=== PATIENT | male | born 1975 | race African-American/Black ===

== ENCOUNTER 2020-09-04 13:43 | Inpatient (IN) | payer SELFPAY ==
[2020-09-04] MEDS ORDERED: Acetaminophen 500 MG TAB ONE (13:58)
[2020-09-04 14:58] LABS: Hemoglobin 7.3 g/dL (14.0-18.0); Mean Corpuscular HGB CONC 29.6 g/dL (32.0-36.0); Mean Corpuscular Hemoglobin 17.6 pg (27.0-31.0); Mean Corpuscular Volume 59.5 fL (78.0-98.0); Mean Platelet Volume 13.5 fL (7.4-10.4); Platelet Count 361 thou/uL (130-400); RBC Distribution Width 28.6 % (11.5-14.5); Red Blood Cell (RBC) Count 4.15 mill/uL (4.70-6.10)
--- NOTE | 2020-09-04 15:01 | RAD ---
XR Chest 1 View Portable History: Intermittent fever Comparison: Radiograph August 22, 2020 Findings: Peripheral left basilar opacity. Remainder of the lungs are clear. No pneumothorax. No effu laura. No pneumothorax. No acute osseous abnormality. Impression: Peripherally basilar opacity seen on recent abdomen pelvis CT examination likely reflecti ve of an area of scar as there is a adjacent diaphragmatic calcification.
[2020-09-04 15:18] LABS: ALT (SGPT) 12 U/L (8-55); AST (SGOT) 42 U/L (5-34); Albumin 2.5 g/dL (3.5-5.0); Alkaline Phosphatase 57 U/L (40-110); Anion Gap 15 mmol/L (10-20); BUN (Urea Nitrogen) 19 mg/dL (8.9-20.6); Bilirubin, Total 0.6 mg/dL (0.2-1.2); Calc. Creatinine Clearance 0 mL/min (70-130); Calcium 7.9 mg/dL (7.8-10.44); Carbon Dioxide 23 mmol/L (22-29); Chloride 96 mmol/L (98-107); Estimated GFR-MDRD 68; Globulin 6.4 g/dL (2.4-3.5); Glucose 106 mg/dL (70-105); Potassium 4.1 mmol/L (3.5-5.1); Protein, Total 8.9 g/dL (6.0-8.3); Sodium 130 mmol/L (136-145)
[2020-09-04 15:28] LABS: Anisocytosis MODERATE=16-30 cells (100X) (0-5/hpf); Band 3 % (5-11); Elliptocytes SLIGHT = 2-5 cells (100X) (0-1/hpf); Eosinophils 4 % (0-10); Hypochromia MODERATE=16-30 cells (100X) (0-5/hpf); Large Platelets SLIGHT; Lymphocytes 22 % (21-51); MDiff Complete? YES; Microcytosis MODERATE=15-30 cells (100X) (0-5/hpf); Monocytes 5 % (0-10); Neutrophil 65 % (42-75); Nucleated RBC 1 % (0); Ovalocytes SLIGHT = 2-5 cells (100X) (0-1/hpf); Platelet Morphology Comment Appears Adequate; Poikilocytosis SLIGHT = 6-15 cells (100X) (0-5/hpf); Polychromasia MODERATE = 3-4 cells (100X) (0-2/hpf); Reactive Lymphocytes 1 % (0-10); Schistocytes MODERATE= 6-15 cells (100X) (0-1/hpf); Target Cells SLIGHT = 2-5 cells (100X) (0-1/hpf); Tear Drops MODERATE= 6-15 cells (100X) (0-1/hpf)
[2020-09-04] MEDS ORDERED: Vancomycin 1 GM/200 ML BAG ONE (15:41)
[2020-09-04] MEDS ORDERED: Piperacillin/Tazobactam 3.375 GM VIAL ONE (15:41)
[2020-09-04] MEDS ORDERED: Fentanyl 100 MCG/2 ML VIAL ONE (16:14)
[2020-09-04 16:18] LABS: Bacteria/HPF None Seen HPF (None Seen); Bilirubin Negative (Negative); Blood, Urine Trace (Negative); Clarity Clear (Clear); Glucose, Urine (Dipstick) Normal (Negative); Ketone, Urine Negative (Negative); Leukocyte Negative Leu/uL (Negative); Nitrite Negative (Negative); Protein, Urine (Dipstick) 70 mg/dL (Neg-Trace); RBC/HPF 0-3 HPF (0-3); Specific Gravity, Urine 1.024 (1.002-1.036); Squamous Epithelial 0-3 HPF (0-3); pH, Urine 5.5 (5.0-9.0)
[2020-09-04 16:26] LABS: SARS-CoV-2 NAA Rapid Test Not Detected (NotDetected)
--- NOTE | 2020-09-04 16:37 | PDOC.HHP ---
Hospitalist HPI - History of Present Illness Fever History of Present Illness: PCP: None The patient is a 45-year-old male with a past medical history significant for HIV (diagnosed 2007) followed by Dr. Cross, frequent lower GI bleeds, history of hemorrhoids, and hypertension that presents to the emergency department for the above complaint. The patient was recently seen at our hospital on 08/22/2020 for a chief complaint of intermittent fevers and lower extremity swelling. The patient left AMA, stating that he felt like the hospital was ignoring his complaint of fever and was just concerned about his hemoglobin count. He reports that he went to [facility] on 08/26/2020 for the same chief complaint of fever and lower extremity swelling. He states that he was there for approximately 5 days. He states that he had "every lab possible". He reports at that stay that his hemoglobin got down to approximately 6.4. He was given 1 unit of RBCs and an iron infusion. He thinks he was seen by infectious disease. He reports that he left with "no diagnosis". He reports that he has had bright red blood per rectum since 2007 status post hemorrhoidectomy. He states that his bleeding last 1 to 2 days and primarily comes with bearing down with a bowel movement. It will resolve for approximately 1 month and then start again. He states that when he bears down he can feel the hemorrhoid "pop". Reports having normal EGD/colonoscopy at [facility] approximately 2 years ago. For the past 2 weeks he has been taking ibuprofen 600 mg twice daily. He denies any rectal pain or trauma. He denies any abdominal pain, nausea, vomiting, hematemesis or constipation. He has no family history of coagulopathy. He does not take any blood thinners. He has no history of liver disease. The patient reports that he has had fever for at least 2 weeks. He reports that its intermittent, T-max 100.3 Fahrenheit. He denies any headache, neck stiffness, recent travel. He denies any shortness of breath, cough or wheezing. No loss of smell. He tested negative for Covid approximately 1 week prior. He denies any chest pain, heart palpitations, or lightheadedness. He does report bilateral lower extremity swelling for the past 2 weeks. He denies any known trauma, pain, erythema, or numbness/tingling/weakness. No history of DVT/PE. He has been on amlodipine for several years and has never had this problem prior. He denies any dysuria or hematuria. Regarding the patient's diagnosis of HIV, he last saw Dr. Cross 1 week ago. He believes a CD 4 count was normal. He has not taken his Atripla since November. Dr. Cross prescribed Biktarvy, however, the patient has not filled the prescription at this time. ED Course: VITAL SIGNS WedSep 04, 2020 13:44 PREET Banuelos Dannette BP: 124/79, Pulse: 120, Resp: 20, Temp: 102.0 (Oral), Pain: 9, O2 sat: 99 on (Room Air), Time: 09/04/2020 13:44. VITAL SIGNS WedSep 04, 2020 14:08 PREET Anthony Oswaldo BP: 137/77, MAP: 97, Pulse: 119, Resp: 13, Temp: 102.9 (Oral), O2 sat: 95 on (Room Air), Time: 09/04/2020 14:08. VITAL SIGNS WedSep 04, 2020 15:10 PREET Anthony Oswaldo BP: 113/68, MAP: 83, Pulse: 113, Resp: 22, O2 sat: 96 on (Room Air), Time: 09/04/2020 15:10. VITAL SIGNS WedSep 04, 2020 15:49 PREET Smyth Jenifer BP: 112/64, MAP: 80, Pulse: 113, Resp: 20 (Non-Labored), Temp: 102.6 (Oral), O2 sat: 98 on (Room Air), Time: 09/04/2020 15:49. VITAL SIGNS WedSep 04, 2020 16:04 PREET Smyth Jenifer BP: 101/60, MAP: 73, Pulse: 105, Resp: 17 (Non-Labored), O2 sat: 98 on (Room Air), Time: 09/04/2020 16:04. VITAL SIGNS WedSep 04, 2020 16:25 PREET Anthony Oswaldo Temp: 101.5 (Oral), Time: 09/04/2020 16:25. Medication administration: fentaNYL (PF) injection 100 mcg IV Push Given 16:24 09/04/2020 sodium chloride 0.9 % intravenous 1 L IV Fluid Infusion Given 16:23 09/04/2020 vancomycin intravenous 1 g IV Piggy Back Given 16:04 09/04/2020 Zosyn 3.375 g IV Piggy Back Given 15:43 09/04/2020 sodium chloride 0.9 % intravenous 1 L IV Fluid Infusion Given 14:39 09/04/2020 Tylenol 1 g Oral Given 14:10 09/04/2020 Hospitalist ROS - Review of Systems Constitutional: reports: fever, chills, malaise Eyes: denies: vision change, redness ENT: reports: nose congestion Respiratory: denies: cough, shortness of breath, sputum, wheezing Cardiovascular: reports: edema (Bilateral lower extremity). denies: chest pain, palpitations, light headedness Gastrointestinal: reports: hematochezia. denies: nausea, vomiting, abdominal pain, diarrhea Genitourinary: denies: dysuria, hematuria Neurological: denies: weakness, numbness, incoordination, change in speech All other systems reviewed; all pertinent +/- noted in HPI/Subj - Medication Medications: Norvasc tablet : Strength - 10 mg : ORAL Patient Dose: 10 mg Oral once a day. Allergies: Iodine Hospitalist History - Past Medical History Source: patient, RN notes reviewed Cardiac: reports: HTN Gastrointestinal: reports: GI bleed (Lower GI bleed) Infectious Disease: reports: HIV (Followed by Dr. Cross, unknown CD4 count at this time) - Past Surgical History Past Surgical History: reports: Other (Hemorrhoidectomy (2007)) - Family History Family History: reports: Other (Noncontributory for autoimmune disorders). denies: cancer - Social History Smoking Status: Current every day smoker Tobacco Type: cigars Alcohol: reports: None Drugs: reports: Other (PCP once a month for the past year, smokes it and cigarettes) Living Situation: With Family (Lives with brother) Occupation: Disabled Activity level: independent ambulation - Exam General Appearance: NAD, awake alert, ill appearing General - other findings: Uncomfortable, diaphoretic Eye: PERRL, anicteric sclera ENT: normocephalic atraumatic, moist mucosa Neck: supple, symmetric Heart: RRR, no murmur, no gallops, no rubs, normal peripheral pulses Respiratory: CTAB, no wheezes, no rales, no ronchi, normal chest expansion, no tachypnea Gastrointestinal: soft, non-tender, normal bowel sounds, no bruit, no guarding, no rigidity, distended Gastrointestinal - other findings: Negative Rovsing sign, negative Thayer sign, no rebound tenderness Extremities: no cyanosis, 1+ LE edema (Bilaterally) Skin: negative: no rashes Skin - other findings: Healing sores bilateral upper extremities and bilateral lower extremities Neurological: cranial nerve grossly intact, no focal deficits Musculoskeletal: normal tone, normal strength Psychiatric: normal affect, A&O x 3 Hospitalist Results - Labs Result Diagrams: 09/04/20 14:43 09/04/20 14:43 Lab results: WBC 16.0 thou/uL (4.8-10.8) H 09/04/20 14:43 Hgb 7.3 g/dL (14.0-18.0) L 09/04/20 14:43 Hct 24.7 % (42.0-52.0) L 09/04/20 14:43 MCV 59.5 fL (78.0-98.0) L 09/04/20 14:43 Plt Count 361 thou/uL (130-400) 09/04/20 14:43 Band Neuts % (Manual) 3 % (5-11) L 09/04/20 14:43 Sodium 130 mmol/L (136-145) L 09/04/20 14:43 Potassium 4.1 mmol/L (3.5-5.1) 09/04/20 14:43 Chloride 96 mmol/L (98-107) L 09/04/20 14:43 Carbon Dioxide 23 mmol/L (22-29) 09/04/20 14:43 BUN 19 mg/dL (8.9-20.6) 09/04/20 14:43 Creatinine 1.38 mg/dL (0.7-1.3) H 09/04/20 14:43 Glucose 106 mg/dL (70-105) H 09/04/20 14:43 Lactic Acid 2.1 mmol/L (0.5-2.2) 09/04/20 14:43 Calcium 7.9 mg/dL (7.8-10.44) 09/04/20 14:43 Total Bilirubin 0.6 mg/dL (0.2-1.2) 09/04/20 14:43 AST 42 U/L (5-34) H 09/04/20 14:43 ALT 12 U/L (8-55) 09/04/20 14:43 Alkaline Phosphatase 57 U/L (40-110) 09/04/20 14:43 B-Natriuretic Peptide 50.1 pg/mL (0-100) 09/04/20 14:43 Serum Total Protein 8.9 g/dL (6.0-8.3) H 09/04/20 14:43 Albumin 2.5 g/dL (3.5-5.0) L 09/04/20 14:43 Urine Ketones Negative mg/dL (Negative) 09/04/20 15:50 Urine Blood Trace (Negative) A 09/04/20 15:50 Urine Nitrite Negative (Negative) 09/04/20 15:50 Ur Leukocyte Esterase Negative Audrey/uL (Negative) 09/04/20 15:50 Urine RBC 0-3 HPF (0-3) 09/04/20 15:50 Urine WBC 4-6 HPF (0-3) A 09/04/20 15:50 Ur Squamous Epith Cells 0-3 HPF (0-3) 09/04/20 15:50 Urine Bacteria None Seen HPF (None Seen) 09/04/20 15:50 - Radiology Interpretation Chest x-ray Status: report reviewed by me Additional Comment: Impression: Peripherally basilar opacity seen on recent abdomen pelvis CT examination likely reflective of an area of scar as there is a adjacent diaphragmatic calcification. Hospitalist H&P A/P - Problem (1) Fever Code(s): R50.9 - FEVER, UNSPECIFIED Status: Acute (2) Sepsis Code(s): A41.9 - SEPSIS, UNSPECIFIED ORGANISM Status: Acute (3) Microcytic anemia Code(s): D50.9 - IRON DEFICIENCY ANEMIA, UNSPECIFIED Status: Acute (4) Swelling of both lower extremities Code(s): M79.89 - OTHER SPECIFIED SOFT TISSUE DISORDERS Status: Acute (5) Illicit drug use Code(s): F19.90 - OTHER PSYCHOACTIVE SUBSTANCE USE, UNSPECIFIED, UNCOMPLICATED Status: Acute (6) HIV (human immunodeficiency virus infection) Code(s): B20 - HUMAN IMMUNODEFICIENCY VIRUS [HIV] DISEASE Status: Chronic (7) History of GI bleed Code(s): Z87.19 - PERSONAL HISTORY OF OTHER DISEASES OF THE DIGESTIVE SYSTEM Status: Chronic (8) HTN (hypertension) Code(s): I10 - ESSENTIAL (PRIMARY) HYPERTENSION Status: Chronic - Plan Plan: 45/M with PMH HIV and frequent lower GI bleed presents to emergency department for fever and lower extremity swelling. Admit to medical floor, inpatient status. Expected length of stay greater than 2 midnights. Presented febrile, tachycardic, tachypneic, NL BP and SPO2. CXR negative. Covid/influenza negative. UA 46 WBC, no leukocytes, nitrites, bacteria WBC 16.0, LA 2.1 Hemoglobin 7.3, hematocrit 24.7 BNP 50.1 #Fever of unknown source Continue broad-spectrum coverage, Zosyn and vancomycin. Continue maintenance IV fluid. Consult ID and hematology/oncology. Blood/urine CX pending Tylenol as needed #Sepsis Suspected. #Microcytic anemia History BRPR since 2007, history hemorrhoidectomy. Received 1 unit PRBCs and iron infusion on 08/26/2020 at [facility] Reported hemoglobin 6.4 at that stay. CBC with schistocytes.Consult hematology/oncology Check LDH, haptoglobin, reticulocyte ct., Peterson test, iron studies Trend H&H every 6. Orthostatic vital signs. Type and screen PPI Avoid NSAIDs and anticoagulants. #Swelling of both lower extremities Reports intermittent for past several weeks. Takes amlodipine, possible culprit. Order echocardiogram. #Illicit drug use Admits using PCP monthly for the past year. Inhales and cigarettes. Obtain UDS. Order echocardiogram. #HIV Followed by Dr. Cross, last appointment 1 week ago. Previously on a Atripla, has not taken since 11/2019. New prescription for Biktarvy has not been filled. Unknown CD4 count #History of GI bleed Reports monthly s/p hemorrhoidectomy (2007) Recent blood and iron transfusion on 08/26/2020 at [facility] for reported hemoglobin of 6.4. #HTN Presented normotensive. Takes amlodipine. We will hold home dose for now. SCDs for DVT prophylaxis. No GI prophylaxis. Full code. Discussed the case with Dr. Cuevas.
[2020-09-04] MEDS ORDERED: Ibuprofen 200 MG TAB ONE (17:05)
[2020-09-04] MEDS ORDERED: Ondansetron ODT 4 MG TAB PO PRN (17:45)
[2020-09-04] MEDS ORDERED: Communication Order-Pharmacy FS PRN (17:47)
[2020-09-04] MEDS: Sodium Chloride 0.9% 1,000 ML IV SCH (18:08)
[2020-09-04 18:11] LABS: CKMB 1.2 ng/mL (0-6.6)
[2020-09-04] MEDS ORDERED: Pantoprazole 40 MG VIAL IVP SCH (18:15)
[2020-09-04 18:18] LABS: Reticulocyte Count 1.6 % (0.5-1.5)
[2020-09-04 18:34] LABS: Lactic Acid 1.1 mmol/L (0.5-2.2)
[2020-09-04 18:51] LABS: Amphetamine Not Detected (NotDetected); Barbiturates Screen Not Detected (NotDetected); Benzodiazepine Screen Not Detected (NotDetected); Cocaine Metabolite Screen Not Detected (NotDetected); Medtox Reader # READER 1; Methadone Not Detected (NotDetected); Methamphetamine Not Detected (NotDetected); Opiate Screen Not Detected (NotDetected); Oxycodone Screen Not Detected (NotDetected); Phencyclidine (PCP) Detected (NotDetected); THC/Cannabinoid Screen Not Detected (NotDetected); Tricyclic Screen Not Detected (NotDetected)
[2020-09-04 18:52] LABS: Medtox Control Line Valid? VALID (VALID)
[2020-09-04 19:52] LABS: Iron 12 ug/dL (65-175); Iron Binding Capacity, Total 149 mcg/dL (261-462)
[2020-09-04] MEDS: Piperacillin/Tazobactam 3.375 GM in Sodium Chloride 0.9% 100 ML IVPB SCH (22:31)
[2020-09-04 22:37] VITALS: BMI 30.6
[2020-09-04] MEDS: Vancomycin 1.5 GRAM/300 ML BAG 1.5 GM in Premix Bag 1 BAG IVPB SCH (23:46)
[2020-09-04] MEDS: Acetaminophen 325 MG TAB PO PRN (23:54)
[2020-09-05 00:36] LABS: Hemoglobin 6.4 g/dL (14.0-18.0)
[2020-09-05] MEDS: Piperacillin/Tazobactam 3.375 GM in Sodium Chloride 0.9% 100 ML IVPB SCH ×4 (03:34→21:39)
[2020-09-05] MEDS ORDERED: HYDROcodone/Acetaminophen 5/325 mg Tablet PO SCH (05:30)
[2020-09-05] MEDS: Sodium Chloride 0.9% 1,000 ML IV SCH (05:44)
[2020-09-05] MEDS: Acetaminophen 325 MG TAB PO PRN ×3 (05:45→20:10)
[2020-09-05 07:40] LABS: #Eosinphils 0.7 thou/uL (0.0-0.7); #Lymphocytes 1.6 thou/uL (1.20-3.40); #Monocytes 0.8 thou/uL (0.11-0.59); #Neutrophils 7.1 thou/uL (1.40-6.50); %Basophils 0.5 % (0.0-1.0); %Eosinophils 7.1 % (0.0-10.0); %Lymphocytes 15.5 % (21.0-51.0); %Monocytes 7.5 % (0.0-10.0); %Neutrophils 69.4 % (42.0-75.0); Hemoglobin 6.4 g/dL (14.0-18.0); Mean Corpuscular HGB CONC 29.2 g/dL (32.0-36.0); Mean Corpuscular Hemoglobin 17.7 pg (27.0-31.0); Mean Corpuscular Volume 60.6 fL (78.0-98.0); Mean Platelet Volume 11.4 fL (7.4-10.4); Platelet Count 273 thou/uL (130-400); RBC Distribution Width 28.4 % (11.5-14.5); Red Blood Cell (RBC) Count 3.62 mill/uL (4.70-6.10); White Blood Cell (WBC) Count 10.2 thou/uL (4.8-10.8)
[2020-09-05 07:55] LABS: Anion Gap 10 mmol/L (10-20); BUN (Urea Nitrogen) 18 mg/dL (8.9-20.6); Calc. Creatinine Clearance 109 mL/min (70-130); Calcium 7.4 mg/dL (7.8-10.44); Carbon Dioxide 24 mmol/L (22-29); Chloride 102 mmol/L (98-107); Estimated GFR-MDRD 76; Glucose 102 mg/dL (70-105); Potassium 3.5 mmol/L (3.5-5.1); Sodium 132 mmol/L (136-145)
[2020-09-05 08:30] LABS: Band 4 % (5-11); Eosinophils 6 % (0-10); Hypochromia MODERATE=16-30 cells (100X) (0-5/hpf); Lymphocytes 15 % (21-51); MDiff Complete? YES; Microcytosis MARKED = >30 cells (100X) (0-5/hpf); Monocytes 6 % (0-10); Neutrophil 69 % (42-75); Ovalocytes MODERATE= 6-15 cells (100X) (0-1/hpf); Platelet Morphology Comment Appears Adequate; Polychromasia SLIGHT = 2-3 cells (100X) (0-2/hpf); Tear Drops MODERATE= 6-15 cells (100X) (0-1/hpf)
[2020-09-05] MEDS: Furosemide 40 MG/4 ML VIAL SLOW IVP SCH (08:53)
[2020-09-05] MEDS: Pantoprazole 40 MG VIAL IVP SCH (08:55)
[2020-09-05] MEDS ORDERED: Sulfameth/Trimethoprim DS 800-160mg TAB PO SCH (09:00)
[2020-09-05] MEDS: HYDROcodone/Acetaminophen 5/325 mg Tablet PO PRN ×2 (10:54→20:11)
[2020-09-05] MEDS: Gabapentin 300 MG CAP PO SCH ×3 (10:54→20:10)
[2020-09-05] MEDS: Vancomycin 1.5 GRAM/300 ML BAG 1.5 GM in Premix Bag 1 BAG IVPB SCH (13:25)
[2020-09-05] MEDS ORDERED: Polyethylene Glycol 3350 17 GM Packet PO PRN (14:43)
--- NOTE | 2020-09-05 14:45 | PDOC.HOSPP ---
- Subjective Subjective: Patient was seen examined at bedside. He had a T-max of 103 overnight. Patient reported as he had not been taking his HIV medication like he supposed to. Repeat a blood count this morning, his hemoglobin is was 6.4. His Covid PCR was negative patient complaining of lower extremity swelling. Blood cultures and urine culture were negative. He is currently is on empiric IV antibiotics with Zosyn and vancomycin. ID has been consulted. - Objective Vital Signs & Weight: Vital Signs (12 hours) Temp Pulse Pulse Resp BP BP BP 09/05/20 13:31 100.1 F H 09/05/20 12:03 101 F H 09/05/20 11:39 103 F H 113 H 20 136/76 09/05/20 11:34 103 F H 113 H 20 136/76 09/05/20 11:11 100.9 F H 108 H 20 139/80 09/05/20 08:00 99.8 F H 99 18 138/74 09/05/20 07:01 100.4 F H 09/05/20 06:15 103 F H 09/05/20 05:40 103.1 F H 117 H 16 131/75 Pulse Ox 09/05/20 13:31 09/05/20 12:03 09/05/20 11:39 98 09/05/20 11:34 98 09/05/20 11:11 97 09/05/20 08:00 98 09/05/20 07:01 09/05/20 06:15 09/05/20 05:40 98 Weight Weight 226 lb I&O: 09/04/20 09/05/20 09/06/20 06:59 06:59 06:59 Intake Total 240 0 Balance 240 0 Result Diagrams: 09/05/20 07:21 09/05/20 07:21 Radiology Reviewed by me: Yes EKG Reviewed by me: Yes Hospitalist ROS - Medication Medications: Active Medications Generic Name Dose Route Start Last Admin Trade Name Freq PRN Reason Stop Dose Admin Acetaminophen 650 mg 09/04/20 17:45 09/05/20 10:56 Acetaminophen 325 Mg Tab PO 650 mg Q4H PRN Administration Headache/Fever/Mild Pain (1-3) Hydrocodone Bitart/Acetaminophen 1 tab 09/05/20 09:45 09/05/20 10:54 Hydrocodone/Acetaminophen 5/325 Mg Tablet PO 1 tab Q4H PRN Administration Moderate to Severe Pain (6-10) Furosemide 40 mg 09/05/20 09:00 09/05/20 08:53 Furosemide 40 Mg/4 Ml Vial SLOW IVP 40 mg DAILY TAYLOR Administration Gabapentin 300 mg 09/05/20 09:00 09/05/20 10:54 Gabapentin 300 Mg Cap PO 300 mg TID TAYLOR Administration Piperacillin Sod/Tazobactam 100 mls @ 200 mls/hr 09/04/20 22:00 09/05/20 08:54 Sod 3.375 gm/ Sodium Chloride IVPB 100 mls 0400,1000,1600,2200 TAYLOR Administration Vancomycin HCl 1.5 gm/ Device 300 mls @ 200 mls/hr 09/04/20 23:59 09/05/20 13:25 IVPB 300 mls 1200,2359 TAYLOR Administration Pantoprazole Sodium 40 mg 09/05/20 09:00 09/05/20 08:55 Pantoprazole 40 Mg Vial IVP 40 mg DAILY TAYLOR Administration Trimethoprim/Sulfamethoxazole 1 tab 09/05/20 09:00 09/05/20 08:55 Sulfameth/Trimethoprim Ds 800-160mg Tab PO 1 tab BID TAYLOR Administration - Exam General Appearance: NAD Eye: PERRL ENT: normocephalic atraumatic Neck: supple Heart: RRR Respiratory: CTAB Gastrointestinal: soft, non-tender Extremities: 1+ LE edema Skin: normal turgor, no lesions Neurological: cranial nerve grossly intact Musculoskeletal: normal tone Psychiatric: normal affect, normal behavior, A&O x 3 Hosp A/P - Plan 45 years old -Wel[place] gentleman who has significant past medical histories of HIV, recurrent lower GI bleed, chronic anemia, medical noncompliance, who presented to ED with complaint of fever, and lower extremity swelling. Fevers of unknown origin --Continue with empiric IV antibiotic, vancomycin/Zosyn, add Bactrim as his CD4 count is unknown --Pending further ID recommendation --Follow all active cultures Microcytic anemia due to iron deficiency --No evidence of active bleeding. His iron study showed that he has iron deficiency anemia --We will start him on oral supplement, as well as IV Venofer --Transfuse 1 unit to keep hemoglobin above 7 Lower extremity swelling --2D echo is pending, will obtain bilateral lower extremity to rule out DVT --Start IV Lasix for dependent edema --Hold Novasc HIV --Check CD4 count --Patient is noncompliant with his antiviral medication --Dr. Cross has been consulted Medical noncompliance --Patient was counseled with regard to this issue Substance abuse --Urine drug screen positive for PCP. Counseled Essential hypertension --Blood pressure stable, his Novast currently is on hold due to his bilateral lower extremity swelling --We will monitor his blood pressure, consider different antihypertensive medications if needed Peripheral neuropathy --Likely due to to his HIV status --We will start him on gabapentin DVT ppx: SCD GI ppx: PPI Code Status: Full Anticipated Dispo: Home when medically stable
[2020-09-05] MEDS ORDERED: Iron, Sodium Ferric Gluconate 250 MG in Sodium Chloride 0.9% 100 ML IVPB SCH (15:00)
[2020-09-05] MEDS ORDERED: Acetaminophen 500 MG TAB PO SCH (15:15)
[2020-09-05 15:55] LABS: Hemoglobin 7.3 g/dL (14.0-18.0)
[2020-09-05] MEDS ORDERED: Vancomycin 1 GM in Premix Bag 1 BAG IVPB SCH (16:00)
--- NOTE | 2020-09-05 16:07 | ULT ---
EXAM: Bilateral lower extremity venous Doppler HISTORY: Bilateral lower extremity edema/swelling. Swelling and pain in each foot. FINDINGS: Grayscale, color-flow, Doppler evaluation, spectral analysis of the bilateral lower extremity venous structures is performed with 2-D imaging. The bilateral common femoral, superficial femoral, popliteal, posterior tibial, proximal greater saphenous and profunda femoral veins are imaged. There is normal luminal compressibility, flow, and augmentation in the visualized deep venous structu res of the bilateral lower extremities. There are several mildly enlarged lymph nodes seen in each inguinal region largest in right inguinal region measuring 1.2 cm in short axis dimension with largest in the left inguinal region measuring 1.3 cm in short axis dimension. Mildly enlarged lymph nodes are seen in bilaterally on CT exam on . IMPRESSION: 1. No evidence of a deep vein thrombosis in the visualized deep venous structures bilateral lower ext remities. 2. Bilateral inguinal lymphadenopathy.
[2020-09-05 17:56] LABS: Hemoglobin 7.5 g/dL (14.0-18.0)
[2020-09-05 18:33] LABS: Syphilis Antibody Nonreactive (Nonreactive); Syphilis Antibody Index 0.07 S/CO (<1.00 Non-Reactive)
--- NOTE | 2020-09-05 18:39 | CON ---
DATE OF CONSULTATION: 09/05/2020 REASON FOR CONSULTATION: Fever. HISTORY OF PRESENT ILLNESS: Mr. Henderson is actually one of my patients for many years now. He had been out of the clinic because of having being incarcerated for 2 or 3 years. He was taking anti-retroviral therapy while in long-term for his longstanding HIV infection. Many years ago, he had severe iron deficiency anemia, which was never completely clarified. It looks like he had banding of hemorrhoids elsewhere and then the severe iron deficiency anemia resolved and he actually was doing well for quite a while on antiretroviral therapy in the clinic. I was following him once or twice a year and then it disappeared because of this incarceration. He showed up in my office, I think, 2 or 3 weeks ago and so when he showed up in my office on August 26, he had been off anti-retroviral therapy since the end of 2018. He then developed nasal obstipation and rhinorrhea, some cough, low-grade fever, went to the emergency room and reportedly no COVID test was done. He continued with rhinorrhea and some malaise, low-grade temperature elevation and then he was noticed to be severely anemic. The same problem had been the dominant feature in his past history. He has noticed hematochezia intermittently. Anyway, I saw him and his viral load then was 15,000 off anti-retroviral therapy and his CD4 cell count was in the mid 300. We decided then to start Biktarvy, gave him a sample, which he has not taken because he was afraid of running out of it if he could not get it filled in the pharmacy. So he is waiting to fill it in the pharmacy before start taking the samples. Since that visit, he was admitted to [facility] for fever and general malaise. The initial diagnosis was sepsis. He had a full workup except for cryptococcus antigen, which was not done. His viral load was 2000 at [facility]. His blood cultures were negative. Liver panel was within normal limits with mild elevation of ALT. He had this microcytic anemia and his imaging study showed lymphadenopathy in the inguinal area. His chest x-ray did not show any infiltrates and his repeat COVID test was negative. So, he has 2 negative COVID tests, one from the beginning of August at [facility] and now the current one. So he was discharged from [facility] to follow up with me and then he started having fever again, now he is back in the hospital here at [facility] and he is having quite intense headaches which are persistent, has developed skin eruption, which in my opinion, reflects a prurigo nodularis, just a few areas of self excoriation scattered through the body skin, infectious process is not completely ruled out. I do not think they did a biopsy at [facility] though. He denies any visual symptoms, sore throat, odynophagia, or dysphagia. No cough or sputum production or chest pain, no dyspnea. No abdominal pain or diarrhea. No genitourinary symptoms. He has complained of swelling in the lower extremities and pain in the ankles and in metacarpophalangeal joints. MEDICAL HISTORY: Longstanding HIV infection, previously well controlled, then he went into long-term and he was taking anti-retroviral therapy, got out at the end of 2019 and stopped taking medication until he saw me. I gave him the samples of Biktarvy but he has not filled it. He has had severe iron deficiency anemia in the past which resolved and now it seems to be back. I think it is associated with gastrointestinal losses, possibly from either AV malformation or hemorrhoids or similar, was never really clarified in the past when he had endoscopies at [facility]. History of hypertension and hemorrhoidectomy. FAMILY HISTORY: Noncontributory. SOCIAL HISTORY: Everyday smoker, mostly cigars. Has used PCP in the past year. Living with brother. ALLERGY HISTORY: Iodine contrast media. CURRENT MEDICATIONS: 1. Colace. 2. Ferrous sulfate. He has had infusion of ferric sodium gluconate complex 250 mg x1. 3. Furosemide. 4. Zosyn. 5. Bactrim. PHYSICAL EXAMINATION: VITAL SIGNS: T-max 103, he is now 98, blood pressure 160/90, heart rate 111, respiratory rate 20, O2 saturation 97. SKIN: Shows multiple areas of self excoriation versus ulcerated lesions. I think those are secondary lesions, not primary. Bilateral inguinal lymphadenopathy about 1.8 cm. HEENT: Ocular movements conjugate. Sclerae white. Pupils are equal. Oral cavity normal without thrush. Teeth in good shape. NECK: Supple, no jugular vein distention. LUNGS: Symmetric, clear breath sounds. HEART: S1 and S2. Regular rate. No S3 or S4. ABDOMEN: Soft, not distended or tender. No ascites. No bladder distention. No organomegaly noted. EXTREMITIES: The patient has pain in mobilization and range of motion of ankles and small joints of feet, both right and left side. There is some limitation of movement because of that pain, but otherwise his neuro examination is nonfocal. He is awake, alert, oriented, follows commands. LABORATORY STUDIES: White cell count 16,000, is down to 10,000, hemoglobin 7.3, platelets 361 with 65% neutrophils, 3% bands, hypochromia noted, nucleated RBCs 1%, polychromasia, poikilocytosis. Chemistry with sodium 130, creatinine 1.38 with a baseline of 1.07. AST 42, ALT 12, alkaline phosphatase , bilirubin 0.6, albumin 2.5, globulin 6.4. Serum total protein 8.9. Urinalysis with 4 to 6 WBCs. The patient has detected PCP in the toxic screen. SARS-CoV RNA PCR not detected. Chest x-ray with no infiltrates. Venogram was pending at this time. ASSESSMENT: 1. Longstanding HIV infection with recent discontinuation of antiretroviral therapy after being released from prison. 2. CD4 cell count in the mid 300s when last checked in May. 3. 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 4. Severe iron deficiency anemia. The source is not clear, but it appears that is the colonic bleeding, chronic low volume. 5. Fever. 6. Leukocytosis. 7. Headaches. DISCUSSION: Differential diagnosis includes COVID infection which is less likely but not completely ruled out. We will go ahead and submit SARS-COV2 antibody to complete the workup. Usual community-acquired bacterial infection is less likely as well. Opportunistic infectious process more likely scenario or a malignancy such as lymphoma. Syphilis has to be ruled out. Mycobacterium tuberculosis is less likely. Atypical mycobacterial infections would be less likely in view of his last CD4 cell count. We will check CMV DNA PCR, crypto antigen. Histo antigen was negative at [facility]. So we will not repeat it. Check syphilis serology. Monitor blood cultures and a CSF evaluation will be ordered. Start anti-retroviral therapy with Isentress and Truvada. Recheck CD4 cell count. Job ID: [id number] [facility]
[2020-09-05] MEDS: Docusate 100 MG CAP PO SCH (20:10)
[2020-09-05] MEDS: Raltegravir Potassium 400 MG TAB PO SCH (20:10)
[2020-09-05 23:33] LABS: Hemoglobin 7.3 g/dL (14.0-18.0)
[2020-09-05 23:50] LABS: Vancomycin, Trough 7.5 ug/mL
[2020-09-06] MEDS: Acetaminophen 325 MG TAB PO PRN ×4 (00:28→20:18)
[2020-09-06] MEDS: Vancomycin 1.5 GRAM/300 ML BAG 1.5 GM in Premix Bag 1 BAG IVPB SCH ×4 (00:28→17:26)
[2020-09-06] MEDS: Piperacillin/Tazobactam 3.375 GM in Sodium Chloride 0.9% 100 ML IVPB SCH ×4 (04:05→22:46)
[2020-09-06 07:40] LABS: ALT (SGPT) 13 U/L (8-55); AST (SGOT) 33 U/L (5-34); Albumin 2.4 g/dL (3.5-5.0); Alkaline Phosphatase 58 U/L (40-110); Anion Gap 11 mmol/L (10-20); BUN (Urea Nitrogen) 10 mg/dL (8.9-20.6); Bilirubin, Total 1.2 mg/dL (0.2-1.2); CRP (Inflammatory) 19.56 mg/dL (= or < 0.5); Calc. Creatinine Clearance 102 mL/min (70-130); Calcium 7.9 mg/dL (7.8-10.44); Carbon Dioxide 23 mmol/L (22-29); Chloride 100 mmol/L (98-107); Estimated GFR-MDRD 71; Glucose 103 mg/dL (70-105); Magnesium 1.9 mg/dL (1.6-2.6); Potassium 3.8 mmol/L (3.5-5.1); Protein, Total 8.4 g/dL (6.0-8.3); Sodium 130 mmol/L (136-145)
[2020-09-06 07:58] LABS: #Basophils 0.1 thou/uL (0.0-0.2); #Eosinphils 0.6 thou/uL (0.0-0.7); #Lymphocytes 2.7 thou/uL (1.20-3.40); #Monocytes 1.2 thou/uL (0.11-0.59); #Neutrophils 10.2 thou/uL (1.40-6.50); %Basophils 0.4 % (0.0-1.0); %Lymphocytes 18.2 % (21.0-51.0); %Neutrophils 69.5 % (42.0-75.0); Hemoglobin 7.6 g/dL (14.0-18.0); Hypochromia SLIGHT = 6-15 cells (100X) (0-5/hpf); MDiff Complete? YES; Mean Corpuscular HGB CONC 30.3 g/dL (32.0-36.0); Mean Corpuscular Hemoglobin 18.4 pg (27.0-31.0); Mean Corpuscular Volume 60.8 fL (78.0-98.0); Mean Platelet Volume 9.5 fL (7.4-10.4); Microcytosis MARKED = >30 cells (100X) (0-5/hpf); Ovalocytes MODERATE= 6-15 cells (100X) (0-1/hpf); Platelet Count 306 thou/uL (130-400); Polychromasia MODERATE = 3-4 cells (100X) (0-2/hpf); RBC Distribution Width 28.9 % (11.5-14.5); Red Blood Cell (RBC) Count 4.14 mill/uL (4.70-6.10); Tear Drops SLIGHT = 2-5 cells (100X) (0-1/hpf); White Blood Cell (WBC) Count 14.7 thou/uL (4.8-10.8)
[2020-09-06] MEDS: HYDROcodone/Acetaminophen 5/325 mg Tablet PO PRN ×2 (09:07→20:18)
[2020-09-06] MEDS: Gabapentin 300 MG CAP PO SCH ×3 (09:08→20:17)
[2020-09-06] MEDS: Furosemide 40 MG/4 ML VIAL SLOW IVP SCH (09:08)
[2020-09-06] MEDS: Docusate 100 MG CAP PO SCH ×2 (09:09→20:17)
[2020-09-06] MEDS: Raltegravir Potassium 400 MG TAB PO SCH ×2 (09:09→20:18)
[2020-09-06] MEDS: Ferrous Gluconate 324 MG TAB PO SCH (09:09)
[2020-09-06] MEDS: Emtricitabine/Tenofovir 200-300 MG TAB PO SCH (09:09)
[2020-09-06] MEDS: Pantoprazole 40 MG VIAL IVP SCH (09:09)
--- NOTE | 2020-09-06 12:36 | RAD ---
FLUOROSCOPICALLY GUIDED LUMBAR PUNCTURE: DATE: 09/06/2020 HISTORY: 45-year-old HIV-positive male presents with headache and fever. Concern for meningitis. A volume of 15 mL of CSF was specifically requested by ordering physician. TECHNIQUE: Signed informed consent obtained. Patient placed prone on fluoroscopy table. Skin of lower back prepa red and draped in usual sterile fashion. 25-gauge needle used to apply buffered lidocaine superficially and deeply. Level selected:L2-3. Approach:right paramedian interlaminar. 22-gauge spinal needle advanced into spinal canal under brief, intermittent fluoroscopy. Upon return of CSF, patient was placed in left lateral decubitus position. A three-way stopcock was placed on the spinal needle after removal of stylette. Manometer was connected to the stopcock. Opening pressure was obtained. 15 mL of CSF collected and placed into 4 separate vials. Spinal needle was removed. Patient tolerated procedure well. No complications. Total fluoroscopy time:1.0 minutes. Dose area product:62.1 uGy*m^2. FINDINGS: CSF appearance: Clear and colorless. Opening pressure: 16 cm CSF. There are 5 lumbar-type vertebrae. Alignment is normal. Vertebral body heights and disc spaces are ma intained. There is no evidence of fracture, significant osteophytes, or any other focal osseous abnormality. IMPRESSION: 1.) Successful lumbar puncture 2.):15 mL of clear cerebrospinal fluid sent to laboratory for analysis. 3.) Normal opening pressure of 16 cm CSF.
[2020-09-06] MEDS ORDERED: Acetaminophen 500 MG TAB PO SCH (13:15)
[2020-09-06 14:08] LABS: CSF, Glucose 49 mg/dl (40-70); CSF, Protein 118 mg/dL (15-40)
--- NOTE | 2020-09-06 14:08 | PDOC.HOSPP ---
- Subjective Subjective: Patient was seen examined at bedside. He is returned from lumbar puncture. He tolerated procedure well. He is still having intermittent fever. Patient denies headache. - Objective Vital Signs & Weight: Vital Signs (12 hours) Temp Pulse Resp BP Pulse Ox 09/06/20 13:19 102 F H 09/06/20 13:17 102 F H 09/06/20 08:21 101.8 F H 113 H 18 154/89 H 96 09/06/20 04:04 102.5 F H 09/06/20 04:00 102.5 F H 107 H 16 155/97 H 94 L Weight Weight 226 lb I&O: 09/05/20 09/06/20 09/07/20 06:59 06:59 06:59 Intake Total 240 3110 Balance 240 3110 Result Diagrams: 09/06/20 07:04 09/06/20 07:04 Radiology Reviewed by me: Yes EKG Reviewed by me: Yes Hospitalist ROS - Medication Medications: Active Medications Generic Name Dose Route Start Last Admin Trade Name Freq PRN Reason Stop Dose Admin Acetaminophen 650 mg 09/04/20 17:45 09/06/20 09:06 Acetaminophen 325 Mg Tab PO 650 mg Q4H PRN Administration Headache/Fever/Mild Pain (1-3) Acetaminophen 1,000 mg 09/06/20 13:15 09/06/20 13:17 Acetaminophen 500 Mg Tab PO 09/06/20 15:15 1,000 mg NOW TAYLOR Administration Hydrocodone Bitart/Acetaminophen 1 tab 09/05/20 09:45 09/06/20 09:07 Hydrocodone/Acetaminophen 5/325 Mg Tablet PO 1 tab Q4H PRN Administration Moderate to Severe Pain (6-10) Docusate Sodium 100 mg 09/05/20 21:00 09/06/20 09:09 Docusate 100 Mg Cap PO 100 mg BID TAYLOR Administration Emtricitabine/Tenofovir 1 tab 09/06/20 09:00 09/06/20 09:09 Emtricitabine/Tenofovir 200-300 Mg Tab PO 1 tab DAILY TAYLOR Administration Ferrous Gluconate 324 mg 09/06/20 08:00 09/06/20 09:09 Ferrous Gluconate 324 Mg Tab PO 324 mg QAM-WM TAYLOR Administration Gabapentin 300 mg 09/05/20 09:00 09/06/20 09:08 Gabapentin 300 Mg Cap PO 300 mg TID TAYLOR Administration Piperacillin Sod/Tazobactam 100 mls @ 200 mls/hr 09/04/20 22:00 09/06/20 09:10 Sod 3.375 gm/ Sodium Chloride IVPB 100 mls 0400,1000,1600,2200 TAYLOR Administration Vancomycin HCl 1.5 gm/ Device 300 mls @ 200 mls/hr 09/06/20 01:00 09/06/20 09:09 IVPB 300 mls 0100,0900,1700 TAYLOR Administration Pantoprazole Sodium 40 mg 09/05/20 09:00 09/06/20 09:09 Pantoprazole 40 Mg Vial IVP 40 mg DAILY TAYLOR Administration Raltegravir 400 mg 09/05/20 21:00 09/06/20 09:09 Raltegravir Potassium 400 Mg Tab PO 400 mg BID TAYLOR Administration - Exam General Appearance: NAD Eye: PERRL ENT: normocephalic atraumatic Neck: supple Heart: RRR Respiratory: CTAB, no wheezes Gastrointestinal: soft, non-tender Extremities: no cyanosis Skin: normal turgor Neurological: cranial nerve grossly intact Musculoskeletal: normal tone Psychiatric: normal affect, normal behavior Hosp A/P - Plan 45 years old -[place] Citizen gentleman who has significant past medical history of HIV, recurrent lower GI bleed, chronic anemia, medical noncompliance, who presented to ED with complaint of fever, and lower extremity swelling. Fevers of unknown origin --Continue with empiric IV antibiotic, vancomycin/Zosyn/Bactrim --Appreciate ID input. s/p LP --Follow all active cultures Microcytic anemia due to iron deficiency, and hx of GI bleed --No evidence of active bleeding. His iron study showed that he has iron deficiency anemia --s/p 1U PRBC, venofer x 1; cont supplemental iron --follow CBC, transfuse to keep Hb>7 HIV --CD4 count pending. Around mid 300 in May per ID --Patient is noncompliant with his antiviral medications --Dr. Cross started him on Isentress and Truvada Medical noncompliance --Patient was counseled with regard to this issue Substance abuse --Urine drug screen positive for PCP. Counseled Essential hypertension --Katelynn currently is on hold due to his bilateral lower extremity ankle swelling --start Lopressor for BP/rate control Peripheral neuropathy --Likely due to to his HIV status --Started him on gabapentin Lower extremity swelling --Echo OK. Venous doppler negative for DVT --Swelling resolved with IV Lasix. DVT ppx: SCD GI ppx: PPI Code Status: Full Anticipated Dispo: Home when medically stable
[2020-09-06] MEDS ORDERED: Metoprolol Tartrate 25 MG TAB PO SCH (14:30)
[2020-09-06 14:32] LABS: CSF Source CSF; Tube # 4
[2020-09-06 14:33] LABS: Clarity Clear (Clear)
[2020-09-06 14:36] LABS: Cell Count Non Hematic 7 %; Eosinophils 3 %; Lymphocytes 75 %
[2020-09-06 14:37] LABS: Segmented Neutrophils 8 %
[2020-09-06] MEDS: Metoprolol Tartrate 25 MG TAB PO SCH (20:18)
[2020-09-07] MEDS: Vancomycin 1.5 GRAM/300 ML BAG 1.5 GM in Premix Bag 1 BAG IVPB SCH ×2 (00:30→10:32)
[2020-09-07] MEDS: Acetaminophen 325 MG TAB PO PRN ×5 (00:30→19:02)
[2020-09-07] MEDS: HYDROcodone/Acetaminophen 5/325 mg Tablet PO PRN ×3 (00:31→23:46)
[2020-09-07 00:48] LABS: Vancomycin, Trough Less than 1.1 ug/mL
[2020-09-07] MEDS: Piperacillin/Tazobactam 3.375 GM in Sodium Chloride 0.9% 100 ML IVPB SCH ×4 (04:24→21:38)
[2020-09-07 05:01] LABS: #Basophils 0.1 thou/uL (0.0-0.2); #Eosinphils 0.6 thou/uL (0.0-0.7); #Lymphocytes 2.5 thou/uL (1.20-3.40); #Monocytes 1.3 thou/uL (0.11-0.59); #Neutrophils 8.3 thou/uL (1.40-6.50); %Basophils 0.4 % (0.0-1.0); %Eosinophils 4.8 % (0.0-10.0); %Lymphocytes 19.6 % (21.0-51.0); %Monocytes 10.3 % (0.0-10.0); %Neutrophils 64.9 % (42.0-75.0); Hemoglobin 7.5 g/dL (14.0-18.0); Mean Corpuscular HGB CONC 29.6 g/dL (32.0-36.0); Mean Corpuscular Hemoglobin 18.3 pg (27.0-31.0); Mean Corpuscular Volume 61.8 fL (78.0-98.0); Mean Platelet Volume 11.9 fL (7.4-10.4); Platelet Count 298 thou/uL (130-400); RBC Distribution Width 29.5 % (11.5-14.5); Red Blood Cell (RBC) Count 4.08 mill/uL (4.70-6.10); White Blood Cell (WBC) Count 12.8 thou/uL (4.8-10.8)
[2020-09-07 05:08] LABS: ALT (SGPT) 14 U/L (8-55); AST (SGOT) 30 U/L (5-34); Albumin 2.3 g/dL (3.5-5.0); Alkaline Phosphatase 54 U/L (40-110); Anion Gap 13 mmol/L (10-20); BUN (Urea Nitrogen) 16 mg/dL (8.9-20.6); Bilirubin, Total 1.2 mg/dL (0.2-1.2); Calc. Creatinine Clearance 108 mL/min (70-130); Carbon Dioxide 18 mmol/L (22-29); Chloride 102 mmol/L (98-107); Estimated GFR-MDRD 76; Glucose 101 mg/dL (70-105); Protein, Total 8.3 g/dL (6.0-8.3); Sodium 129 mmol/L (136-145)
[2020-09-07 08:39] LABS: Vancomycin, Trough Less than 1.1 ug/mL
--- NOTE | 2020-09-07 10:22 | MRI ---
Exam: Brain MRI with and without contrast HISTORY: Abnormal CSF. Headache. HIV positive patient. COMPARISON: None FINDINGS: Gradient echo sequence: No hemorrhage Calvarium: Appropriate T1 marrow signal intensity Midline brain parenchyma: Unremarkable Cerebrum:No parenchymal mass, mass effect or midline shift. Brain volume, slightly less than expected for patient's age. Cortical barrow-white matter differentiation is preserved. No significant T2 or FLAIR white matter hyperintensities. Ventricles: No evidence of hydrocephalus. Sinuses and mastoid air cells: Mild mucosal thickening of the paranasal sinuses. Minimal opacificatio n of bilateral mastoid air cells. Diffusion: Central arterial flow is maintained. Absent restricted diffusion. Postcontrast images:There is a small focus of enhancement along the inferior right lentiform nucleus measuring 0.3 cm. There is no associated restricted diffusion. On the gradient echo sequence, there is hypointensity. The possibility of a small vascular malformation, such as a cavernoma, is raised. N o significant meningeal enhancement. IMPRESSION: 1. Absent restricted diffusion. No acute infarct 2. 3 mm enhancing focus in the right lentiform nucleus. There is associated hypointensity in the axia l gradient echo sequence. Small vascular malformation such as cavernoma is raised. As a conservative measure, 3 month follow-up MRI is recommended.
[2020-09-07] MEDS: Gabapentin 300 MG CAP PO SCH ×3 (10:42→19:02)
[2020-09-07] MEDS: Metoprolol Tartrate 25 MG TAB PO SCH ×2 (10:42→19:03)
[2020-09-07] MEDS: Emtricitabine/Tenofovir 200-300 MG TAB PO SCH (10:43)
[2020-09-07] MEDS: Pantoprazole 40 MG VIAL IVP SCH (10:43)
[2020-09-07] MEDS: Ferrous Gluconate 324 MG TAB PO SCH (10:43)
[2020-09-07] MEDS: Raltegravir Potassium 400 MG TAB PO SCH ×2 (10:43→19:03)
[2020-09-07] MEDS: Docusate 100 MG CAP PO SCH ×2 (10:43→19:03)
--- NOTE | 2020-09-07 11:55 | PDOC.HOSPP ---
- Subjective Encounter Date: 09/07/20 Encounter Time: 11:10 Subjective: Patient is resting. He recovered completely. He is responding to questions appropriately. He did had a temp until this morning he had 1 more febrile episode with a temp of 101.3. He is concerned about his fluid intake. His sodium is on the low end. - Objective Vital Signs & Weight: Vital Signs (12 hours) Temp Pulse Resp BP Pulse Ox 09/07/20 11:26 101.3 F H 09/07/20 07:59 98.3 F 96 18 133/74 97 09/07/20 04:00 98.2 F 09/07/20 00:00 100.6 F H Weight Weight 226 lb I&O: 09/06/20 09/07/20 09/08/20 06:59 06:59 06:59 Intake Total 3110 2560 Balance 3110 2560 Result Diagrams: 09/07/20 04:36 09/07/20 04:36 Hospitalist ROS - Medication Medications: Active Medications Generic Name Dose Route Start Last Admin Trade Name Freq PRN Reason Stop Dose Admin Acetaminophen 650 mg 09/04/20 17:45 09/07/20 10:42 Acetaminophen 325 Mg Tab PO 650 mg Q4H PRN Administration Headache/Fever/Mild Pain (1-3) Hydrocodone Bitart/Acetaminophen 1 tab 09/05/20 09:45 09/07/20 00:31 Hydrocodone/Acetaminophen 5/325 Mg Tablet PO 1 tab Q4H PRN Administration Moderate to Severe Pain (6-10) Docusate Sodium 100 mg 09/05/20 21:00 09/07/20 10:43 Docusate 100 Mg Cap PO 100 mg BID TAYLOR Administration Emtricitabine/Tenofovir 1 tab 09/06/20 09:00 09/07/20 10:43 Emtricitabine/Tenofovir 200-300 Mg Tab PO 1 tab DAILY TAYLOR Administration Ferrous Gluconate 324 mg 09/06/20 08:00 09/07/20 10:43 Ferrous Gluconate 324 Mg Tab PO 324 mg QAM-WM TAYLOR Administration Gabapentin 300 mg 09/05/20 09:00 09/07/20 10:42 Gabapentin 300 Mg Cap PO 300 mg TID TAYLOR Administration Piperacillin Sod/Tazobactam 100 mls @ 200 mls/hr 09/04/20 22:00 09/07/20 10:43 Sod 3.375 gm/ Sodium Chloride IVPB 100 mls 0400,1000,1600,2200 TAYLOR Administration Metoprolol Tartrate 25 mg 09/06/20 21:00 09/07/20 10:42 Metoprolol Tartrate 25 Mg Tab PO 25 mg BID TAYLOR Administration Pantoprazole Sodium 40 mg 09/05/20 09:00 09/07/20 10:43 Pantoprazole 40 Mg Vial IVP 40 mg DAILY TAYLOR Administration Raltegravir 400 mg 09/05/20 21:00 09/07/20 10:43 Raltegravir Potassium 400 Mg Tab PO 400 mg BID TAYLOR Administration - Exam General Appearance: NAD, awake alert, ill appearing Eye: PERRL ENT: normocephalic atraumatic Neck: supple Heart: RRR, normal peripheral pulses Respiratory: CTAB, normal chest expansion Gastrointestinal: soft, normal bowel sounds Neurological: no focal deficits Psychiatric: A&O x 3 Hosp A/P - Plan Fevers of unknown origin --Continue with empiric IV antibiotic, vancomycin/Zosyn/Bactrim --Appreciate ID input. s/p LP ----His CSF pressure is normal. About 15 mL of CSF fluid removed. Shows high protein level of 118. --CSF glucose is normal range. Lymphocytes about 75% -Cryptococcal antigen negative. In the CSF fluid. Microcytic anemia due to iron deficiency, and hx of GI bleed --No evidence of active bleeding. His iron study showed that he has iron deficiency anemia --s/p 1U PRBC, venofer x 1; cont supplemental iron --follow CBC, transfuse to keep Hb<7 HIV --CD4 count pending. Around mid 300 in May per ID --Patient is noncompliant with his antiviral medications --Dr. Cross started him on Isentress and Truvada Medical noncompliance --Patient was counseled with regard to this issue Substance abuse --Urine drug screen positive for PCP. 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 Venous doppler negative for DVT --Swelling resolved with IV Lasix. DVT ppx: SCD GI ppx: PPI Code Status: Full Anticipated Dispo: Home when medically stable Patient has ongoing fever. White count is trending down. Blood and urine cultures negative so far. Currently on Zosyn. Will follow his hemoglobin which is at 7.5 today. See how he does in the next 24 to 48hours make sure he has no fever and his white count is normalized.. CD4 count is still pending.
[2020-09-07] MEDS: Vancomycin HCl 1.75 GM in Sodium Chloride 0.9% 500 ML IVPB SCH ×2 (12:34→23:47)
[2020-09-07] MEDS ORDERED: Magnevist 469MG/ML 20 ML VIAL ONE (15:53)
[2020-09-07 16:09] LABS: %CD4 (Helper/Inducer) 17.8 % (30.8-58.5); Absolute CD4 392 /uL (359-1519); Lymphocytes/Gated Cell Count 2.2 x10E3/uL (0.7-3.1); Total Lymphocyte 16 % (Not Estab.); WBC Total Count 13.3 x10E3/uL (3.4-10.8); nRBC 1 % (0 - 0)
[2020-09-08] MEDS: Piperacillin/Tazobactam 3.375 GM in Sodium Chloride 0.9% 100 ML IVPB SCH ×2 (04:02→09:41)
[2020-09-08] MEDS: Acetaminophen 325 MG TAB PO PRN ×2 (04:03→12:37)
[2020-09-08] MEDS: Gabapentin 300 MG CAP PO SCH ×3 (09:40→19:59)
[2020-09-08] MEDS: Emtricitabine/Tenofovir 200-300 MG TAB PO SCH (09:40)
[2020-09-08] MEDS: HYDROcodone/Acetaminophen 5/325 mg Tablet PO PRN ×2 (09:40→19:59)
[2020-09-08] MEDS: Ferrous Gluconate 324 MG TAB PO SCH (09:40)
[2020-09-08] MEDS: Docusate 100 MG CAP PO SCH ×2 (09:40→20:00)
[2020-09-08] MEDS: Raltegravir Potassium 400 MG TAB PO SCH ×2 (09:40→20:00)
[2020-09-08] MEDS: Pantoprazole 40 MG VIAL IVP SCH (09:41)
[2020-09-08] MEDS: Metoprolol Tartrate 25 MG TAB PO SCH ×2 (09:41→19:59)
[2020-09-08] MEDS: Vancomycin HCl 1.75 GM in Sodium Chloride 0.9% 500 ML IVPB SCH (10:28)
--- NOTE | 2020-09-08 12:33 | PDOC.HOSPP ---
- Subjective Encounter Date: 09/08/20 Encounter Time: 12:10 Subjective: he has ongoing fever, ankle swollen, but no pitting edema on the legs. - Objective Vital Signs & Weight: Vital Signs (12 hours) Temp Pulse Resp BP Pulse Ox 09/08/20 12:00 101.0 F H 09/08/20 08:00 102.8 F H 113 H 20 132/79 98 09/08/20 04:03 101 F H Weight Weight 226 lb I&O: 09/07/20 09/08/20 09/09/20 06:59 06:59 06:59 Intake Total 2560 3310 960 Balance 2560 3310 960 Result Diagrams: 09/07/20 04:36 09/07/20 04:36 Hospitalist ROS - Medication Medications: Active Medications Generic Name Dose Route Start Last Admin Trade Name Freq PRN Reason Stop Dose Admin Acetaminophen 650 mg 09/04/20 17:45 09/08/20 04:03 Acetaminophen 325 Mg Tab PO 650 mg Q4H PRN Administration Headache/Fever/Mild Pain (1-3) Hydrocodone Bitart/Acetaminophen 1 tab 09/05/20 09:45 09/08/20 09:40 Hydrocodone/Acetaminophen 5/325 Mg Tablet PO 1 tab Q4H PRN Administration Moderate to Severe Pain (6-10) Docusate Sodium 100 mg 09/05/20 21:00 09/08/20 09:40 Docusate 100 Mg Cap PO 100 mg BID TAYLOR Administration Emtricitabine/Tenofovir 1 tab 09/06/20 09:00 09/08/20 09:40 Emtricitabine/Tenofovir 200-300 Mg Tab PO 1 tab DAILY TAYLOR Administration Ferrous Gluconate 324 mg 09/06/20 08:00 09/08/20 09:40 Ferrous Gluconate 324 Mg Tab PO 324 mg QAM-WM TAYLOR Administration Gabapentin 300 mg 09/05/20 09:00 09/08/20 09:40 Gabapentin 300 Mg Cap PO 300 mg TID TAYLOR Administration Piperacillin Sod/Tazobactam 100 mls @ 200 mls/hr 09/04/20 22:00 09/08/20 09:41 Sod 3.375 gm/ Sodium Chloride IVPB 100 mls 0400,1000,1600,2200 TAYLOR Administration Vancomycin HCl 1.75 gm/ Sodium 500 mls @ 250 mls/hr 09/07/20 12:00 09/08/20 10:28 Chloride IVPB 500 mls 1200,2359 TAYLOR Administration Metoprolol Tartrate 25 mg 09/06/20 21:00 09/08/20 09:41 Metoprolol Tartrate 25 Mg Tab PO 25 mg BID TAYLOR Administration Pantoprazole Sodium 40 mg 09/05/20 09:00 09/08/20 09:41 Pantoprazole 40 Mg Vial IVP 40 mg DAILY TAYLOR Administration Raltegravir 400 mg 09/05/20 21:00 09/08/20 09:40 Raltegravir Potassium 400 Mg Tab PO 400 mg BID TAYLOR Administration - Exam General Appearance: NAD, awake alert Eye: PERRL ENT: normocephalic atraumatic Neck: supple Heart: RRR Respiratory: CTAB, normal chest expansion Gastrointestinal: soft, normal bowel sounds Extremities: 1+ LE edema Extremities - other findings: ankle swollen, b/l Neurological: cranial nerve grossly intact, no focal deficits Psychiatric: A&O x 3 Hosp A/P - Plan Fevers of unknown origin --Continue with empiric IV antibiotic, vancomycin/Zosyn/Bactrim --Appreciate ID input. s/p LP ----His CSF pressure is normal. About 15 mL of CSF fluid removed. Shows high protein level of 118. --CSF glucose is normal range. Lymphocytes about 75% -Cryptococcal antigen negative. In the CSF fluid. Microcytic anemia due to iron deficiency, and hx of GI bleed --No evidence of active bleeding. His iron study showed that he has iron de ficiency anemia --s/p 1U PRBC, venofer x 1; cont supplemental iron --follow CBC, transfuse to keep Hb<7 HIV --CD4 count pending. Around mid 300 in May per ID --Patient is noncompliant with his antiviral medications --Dr. Cross started him on Isentress and Truvada Medical noncompliance --Patient was counseled with regard to this issue Substance abuse --Urine drug screen positive for PCP. 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 Venous doppler negative for DVT --Swelling resolved with IV Lasix. DVT ppx: SCD GI ppx: PPI Code Status: Full Anticipated Dispo: Home when medically stable Patient has ongoing fever, requiring ongoing Tylenol [id number] every 4 hours. White count is trending down. Blood and urine cultures negative so far. Currently on Zosyn. CD4 count is 392 He was incarcerated recently and released and seems living locally. so unlikely valley fever, histo etc causing his fever. His CD count good, not AIDS - so AIDS and other etiologies associated with the AIDS including, Kaposi's sarcoma causing fever is unlikely in his case. Will repeat the chest x-ray,UA and inflammatory markers.
[2020-09-08 13:11] LABS: #Basophils 0.1 thou/uL (0.0-0.2); #Eosinphils 0.4 thou/uL (0.0-0.7); #Lymphocytes 3.2 thou/uL (1.20-3.40); #Neutrophils 7.5 thou/uL (1.40-6.50); %Basophils 0.6 % (0.0-1.0); %Eosinophils 3.5 % (0.0-10.0); %Lymphocytes 26.1 % (21.0-51.0); %Monocytes 8.1 % (0.0-10.0); %Neutrophils 61.7 % (42.0-75.0); Hemoglobin 7.1 g/dL (14.0-18.0); Mean Corpuscular HGB CONC 29.6 g/dL (32.0-36.0); Mean Corpuscular Hemoglobin 17.8 pg (27.0-31.0); Mean Corpuscular Volume 60.2 fL (78.0-98.0); Mean Platelet Volume 12.1 fL (7.4-10.4); Platelet Count 324 thou/uL (130-400); White Blood Cell (WBC) Count 12.2 thou/uL (4.8-10.8)
[2020-09-08 13:14] LABS: Anion Gap 12 mmol/L (10-20); BUN (Urea Nitrogen) 13 mg/dL (8.9-20.6); Calc. Creatinine Clearance 110 mL/min (70-130); Calcium 7.7 mg/dL (7.8-10.44); Carbon Dioxide 19 mmol/L (22-29); Chloride 104 mmol/L (98-107); Estimated GFR-MDRD 77; Glucose 95 mg/dL (70-105); Potassium 4.1 mmol/L (3.5-5.1); Sodium 131 mmol/L (136-145)
--- NOTE | 2020-09-08 13:40 | RAD ---
Exam: Chest one view HISTORY:Persistent, ongoing fever Comparison: 09/04/2020 FINDINGS: Cardiac silhouette: Normal Aorta: Unremarkable Pulmonary vessels: Normal Costophrenic angles: Clear LUNGS: No masses or consolidation. Pneumothorax: None Osseous abnormalities: None IMPRESSION: No acute cardiopulmonary process.
[2020-09-08 13:57] LABS: Anisocytosis MODERATE=16-30 cells (100X) (0-5/hpf); Elliptocytes SLIGHT = 2-5 cells (100X) (0-1/hpf); Hypochromia MODERATE=16-30 cells (100X) (0-5/hpf); MDiff Complete? YES; Microcytosis MODERATE=15-30 cells (100X) (0-5/hpf); Ovalocytes MODERATE= 6-15 cells (100X) (0-1/hpf); Poikilocytosis MODERATE=16-30 cells (100X) (0-5/hpf); Polychromasia MODERATE = 3-4 cells (100X) (0-2/hpf); Schistocytes SLIGHT = 2-5 cells (100X) (0-1/hpf); Spherocytes SLIGHT = 1-5 cells (100X) (None Seen); Target Cells SLIGHT = 2-5 cells (100X) (0-1/hpf); Tear Drops SLIGHT = 2-5 cells (100X) (0-1/hpf)
[2020-09-08] MEDS ORDERED: Ibuprofen 800 MG TAB PO SCH (14:30)
--- NOTE | 2020-09-08 14:45 | PRG ---
DATE OF SERVICE: 09/08/2020 SUBJECTIVE: Still having fever, pretty much constantly. He describes what he perceives as a scotomas in the left side. No sore throat, odynophagia, dysphagia. No cough, sputum production, or chest pain. No abdominal pain. Voiding without difficulty. Some loose stool intermittently. Quite a bit of pain in the feet, mostly on the right side but also some on the left. The pain is localized to the forefoot, right and left side. It is not clear if the pain is neuropathic in nature or if it is in the substance of the foot. He does have pain on palpation of those areas, particularly on the right side. There is not clear evidence of joint inflammatory changes. OBJECTIVE: VITAL SIGNS: Again T-max 102.8, BP 130/70, heart rate 113, and O2 saturation 98%. GENERAL: Appears in no distress. 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 HEENT: Ocular movements conjugate. Oral cavity normal. LUNGS: Clear to auscultation and percussion. HEART: S1, S2. Regular rate. No S3 or S4. ABDOMEN: Soft. Not distended or tender. No ascites. No bladder distention. EXTREMITIES: No joint inflammatory activity. Pulses are 1+ in dorsalis pedis. Feet are quite tender to palpation, but no inflammatory changes are actually noticeable though most of the tenderness is in the forefoot area both dorsal and plantar aspect. No obvious signs of inflammatory arthropathy noted. LABORATORY DATA: Sodium 131, creatinine 1.23, calcium 7.7. CRP is 16.85, albumin 2.3, globulin 6.0. Urinalysis was with 4-6 wbc's. CSF with 111 total wbc's with glucose 49, protein 118, 75% lymphocytes. Toxicology demonstrated phencyclidine noted on admission. Absolute CD4 is 392. SARS CoV RT-PCR was negative. Syphilis antibody negative. Number of assays are pending including CMV, DNA, PCR. Cryptococcus antigen in the CSF was negative. Brain MRI did not show any remarkable findings. A repeat chest x-ray was normal. ASSESSMENT: Longstanding HIV infection with interruption of antiretroviral therapy after he got out of group home; the end of the last year. Recurrence of iron deficiency anemia, status post iron transfusion or infusion. Persistence of fever of unknown origin. Pain in the feet; either neuropathic or related to inflammatory process in the small joints of the feet. 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 Glucose was kind of borderline though. His serum glucose ranges from 95-106. The CD4 cell count places the patient out of range of the usual opportunistic processes, although I have seen patients with HIV infection with some opportunistic processes, particularly malignancies, especially in the cases of lymphomas, Cryptococcus neoformans infection and Mycobacterium tuberculosis. We will check a QuantiFERON, complete FUO workup with abdomen and pelvis CT. Start ibuprofen on schedule. Wait for the remainder of his assays that are pending. Continue antiretroviral therapy. Job ID: [id number]
[2020-09-08] MEDS: Ibuprofen 800 MG TAB PO SCH (21:19)
[2020-09-09] MEDS: predniSONE 50 MG TAB PO SCH ×3 (01:08→12:58)
[2020-09-09] MEDS: Ibuprofen 800 MG TAB PO SCH ×3 (06:26→22:40)
[2020-09-09 07:27] LABS: Anion Gap 11 mmol/L (10-20); BUN (Urea Nitrogen) 20 mg/dL (8.9-20.6); Calc. Creatinine Clearance 107 mL/min (70-130); Calcium 8.3 mg/dL (7.8-10.44); Carbon Dioxide 22 mmol/L (22-29); Chloride 105 mmol/L (98-107); Estimated GFR-MDRD 74; Glucose 140 mg/dL (70-105); Potassium 4.2 mmol/L (3.5-5.1); Sodium 134 mmol/L (136-145)
[2020-09-09] MEDS: Gabapentin 300 MG CAP PO SCH (09:49)
[2020-09-09] MEDS: Metoprolol Tartrate 25 MG TAB PO SCH ×2 (09:49→20:48)
[2020-09-09] MEDS: Pantoprazole 40 MG VIAL IVP SCH (09:49)
[2020-09-09] MEDS: Ferrous Gluconate 324 MG TAB PO SCH (09:49)
[2020-09-09] MEDS: Raltegravir Potassium 400 MG TAB PO SCH ×2 (09:49→20:47)
[2020-09-09] MEDS: Docusate 100 MG CAP PO SCH ×2 (09:49→20:48)
[2020-09-09] MEDS: Emtricitabine/Tenofovir 200-300 MG TAB PO SCH (09:49)
[2020-09-09] MEDS: HYDROcodone/Acetaminophen 5/325 mg Tablet PO PRN ×2 (09:50→22:38)
--- NOTE | 2020-09-09 12:11 | PDOC.HOSPP ---
- Subjective Encounter Date: 09/09/20 Subjective: Patient was seen and examined at the beside. No fever noted. No edema in either legs or feet. Patient reports shooting pain for at least 3 weeks and it is 24/7 in both his feet. The symptoms is not worsening during nighttime. Patient is not diabetic - Objective Vital Signs & Weight: Vital Signs (12 hours) Temp Pulse Resp BP Pulse Ox 09/09/20 08:00 98.1 F 84 16 129/70 99 09/09/20 04:00 97.9 F Weight Weight 226 lb I&O: 09/08/20 09/09/20 09/10/20 06:59 06:59 06:59 Intake Total 3310 2560 Balance 3310 2560 Result Diagrams: 09/08/20 12:51 09/09/20 06:57 Hospitalist ROS - Review of Systems Constitutional: denies: fever, chills, weakness Respiratory: denies: cough, dry, shortness of breath, hemoptysis, SOB with excertion, pleuritic pain, sputum, wheezing Cardiovascular: denies: chest pain, palpitations, orthopnea, paroxysmal noc. dyspnea, light headedness Gastrointestinal: denies: nausea, vomiting, abdominal pain, diarrhea, constipation Musculoskeletal: reports: foot pain (reports shooting pain in both feet) - Medication Medications: Active Medications Generic Name Dose Route Start Last Admin Trade Name Freq PRN Reason Stop Dose Admin Acetaminophen 650 mg 09/04/20 17:45 09/08/20 12:37 Acetaminophen 325 Mg Tab PO 650 mg Q4H PRN Administration Headache/Fever/Mild Pain (1-3) Hydrocodone Bitart/Acetaminophen 1 tab 09/05/20 09:45 09/09/20 09:50 Hydrocodone/Acetaminophen 5/325 Mg Tablet PO 1 tab Q4H PRN Administration Moderate to Severe Pain (6-10) Docusate Sodium 100 mg 09/05/20 21:00 09/09/20 09:49 Docusate 100 Mg Cap PO 100 mg BID TAYLOR Administration Emtricitabine/Tenofovir 1 tab 09/06/20 09:00 09/09/20 09:49 Emtricitabine/Tenofovir 200-300 Mg Tab PO 1 tab DAILY TAYLOR Administration Ferrous Gluconate 324 mg 09/06/20 08:00 09/09/20 09:49 Ferrous Gluconate 324 Mg Tab PO 324 mg QAM-WM TAYLOR Administration Gabapentin 300 mg 09/05/20 09:00 09/09/20 09:49 Gabapentin 300 Mg Cap PO 300 mg TID TAYLOR Administration Ibuprofen 800 mg 09/08/20 22:00 09/09/20 06:26 Ibuprofen 800 Mg Tab PO 800 mg Q8HR TAYLOR Administration Metoprolol Tartrate 25 mg 09/06/20 21:00 09/09/20 09:49 Metoprolol Tartrate 25 Mg Tab PO 25 mg BID TAYLOR Administration Pantoprazole Sodium 40 mg 09/05/20 09:00 09/09/20 09:49 Pantoprazole 40 Mg Vial IVP 40 mg DAILY TAYLOR Administration Prednisone 50 mg 09/09/20 01:00 09/09/20 06:26 Prednisone 50 Mg Tab PO 09/09/20 15:00 50 mg 0100,0700,1300 TAYLOR Administration Raltegravir 400 mg 09/05/20 21:00 09/09/20 09:49 Raltegravir Potassium 400 Mg Tab PO 400 mg BID TAYLOR Administration Sodium Chloride 10 ml 09/04/20 17:40 09/08/20 12:37 Flush - Normal Saline 10 Ml Syringe IVF 10 ml PRN PRN Administration Saline Flush - Exam ENT: normocephalic atraumatic, no oropharyngeal lesions, moist mucosa Neck: supple, symmetric, no thyromegaly, no lymphadenopathy, no carotid bruit Heart: RRR, no murmur, no gallops, no rubs, normal peripheral pulses Respiratory: CTAB, no wheezes, no rales, no ronchi, normal chest expansion, no tachypnea, normal percussion Gastrointestinal: soft, non-tender, non-distended, normal bowel sounds, no palpable masses, no hepatomegaly, no splenomegaly, no guarding, no rigidity Musculoskeletal - other findings: on palpation of feet patient says he has shooting pain Hosp A/P - Plan DVT proph w/SCDs, GI proph Fevers of unknown origin --Continue with empiric IV antibiotic, vancomycin/Zosyn/Bactrim --Appreciate ID input. s/p LP ----His CSF pressure is normal. About 15 mL of CSF fluid removed. Shows high protein level of 118. --CSF glucose is normal range. Lymphocytes about 75% -Cryptococcal antigen negative. In the CSF fluid. Microcytic anemia due to iron deficiency, and hx of GI bleed --No evidence of active bleeding. His iron study showed that he has iron deficiency anemia --s/p 1U PRBC, venofer x 1; cont supplemental iron --follow CBC, transfuse to keep Hb<7 HIV --CD4 count pending. Around mid 300 in May per ID --Patient is noncompliant with his antiviral medications --Dr. Cross started him on Isentress and Truvada Medical noncompliance --Patient was counseled with regard to this issue Substance abuse --Urine drug screen positive for PCP. 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 Venous doppler negative for DVT --Swelling resolved with IV Lasix. DVT ppx: SCD GI ppx: PPI Code Status: Full Anticipated Dispo: Home when medically stable Patient has ongoing fever, requiring ongoing Tylenol [id number] every 4 hours. White count is trending down. Blood and urine cultures negative so far. Currently on Zosyn. CD4 count is 392 He was incarcerated recently and released and seems living locally. so unlikely valley fever, histo etc causing his fever. His CD count good, not AIDS - so AIDS and other etiologies associated with the AIDS including, Kaposi's sarcoma causing fever is unlikely in his case. Will repeat the chest x-ray,UA and inflammatory markers. 16th His blood glucose is relatively in good range patient is not a diabetic so unlikely diabetic neuropathy. 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 -We will follow with a TSH B12 and vitamin D level Symptoms are not adequately controlled so we are going to increase his gabapentin to the next level. Will increase gradually over a few weeks time to control his symptoms. 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 -He still has ongoing abdominal pain -His LFTs are in the normal range; his LDH is 274 -We will get a CT abdomen as well as lipase level.
[2020-09-09] MEDS ORDERED: diphenhydrAMINE 50 MG CAP PO SCH (13:00)
--- NOTE | 2020-09-09 13:30 | PRG ---
DATE OF SERVICE: 09/09/2020 SUBJECTIVE: Feeling better after ibuprofen was started. Fever is down. Going for his CT later on today. No headaches. No respiratory symptoms or abdominal pain. Voiding without difficulty. No diarrhea. OBJECTIVE: VITAL SIGNS: Normal essentially. Saturations are 99% on room air. GENERAL: Appears in no distress. HEENT: Ocular movements conjugate. LUNGS: Clear. HEART: S1 and S2. Regular rate. ABDOMEN: Soft, not distended. EXTREMITIES: Moves extremities equally. SKIN: Normal. LABORATORY DATA: White cell count 12.2, hemoglobin 7.1, MCV 60. Differential was normal. A repeat chest x-ray was normal. The CMV DNA PCR is pending. ASSESSMENT AND DISCUSSION: Longstanding human immunodeficiency virus infection with interruption of antiretroviral therapy for the past few months with admission for evaluation and management of fever of unknown origin. Here there was identification of findings consistent with aseptic meningitis and cryptococcus antigen was negative in the CSF. 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 We will go ahead and continue ibuprofen and watch the results of his CT of abdomen and pelvis and go from there. Conceivably could consider discharge planning for him to continue taking Biktarvy in the outpatient setting and should be able to follow him up over there. Job ID: [id number]
--- NOTE | 2020-09-09 14:39 | CT ---
CT OF THE ABDOMEN AND PELVIS WITH IV CONTRAST INDICATION: History of fever of unknown origin and HIV COMPARISON: Prior CT the abdomen and pelvis dated August 22, 2020 FINDINGS: ABDOMEN: Lung bases: There are small bilateral pleural effusions with bibasilar subsegmental atelectasis. Liver: No focal lesion. Gallbladder: Contracted with small suspected stones. Pancreas: Normal. Adrenal glands: Normal. Spleen: Enlarged measuring 17.8 cm Kidneys and ureters: There is heterogeneous enhancement of both kidneys with surrounding perinephric inflammatory stranding which is new from the prior examination suspicious for bilateral pyelonephritis. No drainable intraparenchymal or perinephric fluid collection is evident. Vasculature: There are mild vascular calcifications seen involving the visualized vasculature. Lymph nodes:There are shotty appearing lymph nodes within the retroperitoneum. Free fluid in abdomen:No free fluid is evident. PELVIS: Small and large bowel: Colonic diverticulosis without evidence of active diverticulitis. Appendix:Not definitely seen Bladder: Decompressed but with marked wall thickening Rectal and perirectal soft tissues:Normal. Reproductive structures: Normal. Free fluid in pelvis: Mild free fluid Lymphadenopathy pelvis: The bilateral obturator internus lymph nodes have decreased in size. On the l eft measures 1.4 cm and on the right measures 1.5 cm. Previously these lymph nodes measure 1.7 and 2.5 cm respectively. The extent of the inguinal lymphadenopathy is improved from the prior exam. Osseous structures: No acute osseous abnormality. No destructive osteolytic or osteoblastic lesion i s identified. There is scattered degenerative and osteoarthritic changes. Soft tissues:Mild anasarca IMPRESSION: 1. Findings suspicious for bilateral pyelonephritis and cystitis. 2. Improving lymphadenopathy the pelvis and inguinal regions. 3. Slightly more pronounced splenomegaly. 4. Contracted gallbladder with tiny stones.
[2020-09-09 15:03] LABS: Thyroid Stimulating Hormone 0.4765 uIU/mL (0.35-4.94)
[2020-09-09] MEDS: Gabapentin 400 MG CAP PO SCH ×2 (15:59→20:51)
[2020-09-09 18:11] LABS: Bilirubin Negative (Negative); Blood, Urine Negative (Negative); Clarity Clear (Clear); Glucose, Urine (Dipstick) Normal (Negative); Ketone, Urine Negative (Negative); Leukocyte Negative Leu/uL (Negative); Nitrite Negative (Negative); Protein, Urine (Dipstick) 30 mg/dL (Neg-Trace); RBC/HPF 0-3 HPF (0-3); Squamous Epithelial 0-3 HPF (0-3); Urobilinogen Normal mg/dL (Less than 2); WBC/HPF 0-3 HPF (0-3); pH, Urine 5.5 (5.0-9.0)
[2020-09-09 18:20] LABS: Bacteria/HPF 1+ HPF (None Seen)
[2020-09-09 18:21] LABS: Specific Gravity, Urine 1.048 (1.002-1.036)
[2020-09-09 18:45] LABS: Sperm/HPF 1+ HPF (None Seen)
[2020-09-09 18:46] LABS: Urine Culture Reflex Yes Yes
[2020-09-09 19:22] LABS: Hemoglobin 7.1 g/dL (14.0-18.0)
--- NOTE | 2020-09-09 21:48 | PDOC.EVN ---
Event Note - Event Note Event Note: Notified by RN, patient with orders to transfuse if Hgb less than 7.[address] Bishop. He is refusing unless placed back on antibiotics due to concern for transfusion reaction. Currently off antibiotics, Dr. Cross following. Last transfusion was on 09/05. His hgb today was 7.1, unchanged from yesterday. Will hold transfusion per patient request. He is without active bleeding and hgb is stable. Day team to decide on need for transfusion and antibiotics. Repeat labs in the AM.
[2020-09-10 04:35] LABS: #Lymphocytes 1.9 thou/uL (1.20-3.40); #Monocytes 0.4 thou/uL (0.11-0.59); %Basophils 0.1 % (0.0-1.0); %Eosinophils 0.3 % (0.0-10.0); %Lymphocytes 16.8 % (21.0-51.0); %Monocytes 3.9 % (0.0-10.0); Hemoglobin 6.4 g/dL (14.0-18.0); Mean Corpuscular HGB CONC 30.1 g/dL (32.0-36.0); Mean Corpuscular Hemoglobin 17.8 pg (27.0-31.0); Mean Corpuscular Volume 59.1 fL (78.0-98.0); Mean Platelet Volume 12.3 fL (7.4-10.4); Platelet Count 310 thou/uL (130-400); RBC Distribution Width 28.3 % (11.5-14.5); Red Blood Cell (RBC) Count 3.59 mill/uL (4.70-6.10); White Blood Cell (WBC) Count 11.4 thou/uL (4.8-10.8)
[2020-09-10] MEDS: Ibuprofen 800 MG TAB PO SCH ×2 (05:40→14:35)
[2020-09-10] MEDS: HYDROcodone/Acetaminophen 5/325 mg Tablet PO PRN ×2 (05:42→09:10)
[2020-09-10] MEDS: Metoprolol Tartrate 25 MG TAB PO SCH (09:06)
[2020-09-10] MEDS: Ferrous Gluconate 324 MG TAB PO SCH (09:06)
[2020-09-10] MEDS: Docusate 100 MG CAP PO SCH (09:06)
[2020-09-10] MEDS: Emtricitabine/Tenofovir 200-300 MG TAB PO SCH (09:07)
[2020-09-10] MEDS: Gabapentin 400 MG CAP PO SCH ×2 (09:07→14:34)
[2020-09-10] MEDS: Pantoprazole 40 MG VIAL IVP SCH (09:08)
[2020-09-10] MEDS: Raltegravir Potassium 400 MG TAB PO SCH (11:27)
--- NOTE | 2020-09-10 12:46 | PDOC.HOSPP ---
- Subjective Encounter Date: 09/10/20 Encounter Time: 09:05 Subjective: Patient was seen and examined at the bedside. Patient reports recurrent shooting pain in both his feet. This shooting pain is nondiabetic related. Patient says that he had a colonoscopy 2 years ago which showed insignificant findings. Patient is afebrile and has no edema noted. - Objective Vital Signs & Weight: Vital Signs (12 hours) Temp Pulse Pulse Resp BP BP Pulse Ox 09/10/20 12:00 97.5 F L 09/10/20 11:30 97.5 F L 73 18 148/91 H 99 09/10/20 11:05 97.5 F L 84 18 137/93 H 100 09/10/20 08:00 97.4 F L 82 18 141/91 H 99 09/10/20 04:00 97.6 F Weight Weight 226 lb I&O: 09/09/20 09/10/20 09/11/20 06:59 06:59 06:59 Intake Total 2560 1380 0 Balance 2560 1380 0 Result Diagrams: 09/10/20 04:16 09/09/20 06:57 Hospitalist ROS - Review of Systems Respiratory: denies: cough, dry, shortness of breath, hemoptysis, SOB with excer tion, pleuritic pain, sputum, wheezing Cardiovascular: denies: chest pain, palpitations, orthopnea, paroxysmal noc. dyspnea, edema, light headedness Gastrointestinal: denies: nausea, vomiting, abdominal pain, diarrhea, constipation - Medication Medications: Active Medications Generic Name Dose Route Start Last Admin Trade Name Freq PRN Reason Stop Dose Admin Acetaminophen 650 mg 09/04/20 17:45 09/08/20 12:37 Acetaminophen 325 Mg Tab PO 650 mg Q4H PRN Administration Headache/Fever/Mild Pain (1-3) Hydrocodone Bitart/Acetaminophen 1 tab 09/05/20 09:45 09/10/20 09:10 Hydrocodone/Acetaminophen 5/325 Mg Tablet PO 1 tab Q4H PRN Administration Moderate to Severe Pain (6-10) Docusate Sodium 100 mg 09/05/20 21:00 09/10/20 09:06 Docusate 100 Mg Cap PO 100 mg BID TAYLOR Administration Emtricitabine/Tenofovir 1 tab 09/06/20 09:00 09/10/20 09:07 Emtricitabine/Tenofovir 200-300 Mg Tab PO 1 tab DAILY TAYLOR Administration Ferrous Gluconate 324 mg 09/06/20 08:00 09/10/20 09:06 Ferrous Gluconate 324 Mg Tab PO 324 mg QAM-WM TAYLOR Administration Gabapentin 400 mg 09/09/20 15:00 09/10/20 09:07 Gabapentin 400 Mg Cap PO 400 mg TID TAYLOR Administration Ibuprofen 800 mg 09/08/20 22:00 09/10/20 05:40 Ibuprofen 800 Mg Tab PO 800 mg Q8HR TAYLOR Administration Metoprolol Tartrate 25 mg 09/06/20 21:00 09/10/20 09:06 Metoprolol Tartrate 25 Mg Tab PO 25 mg BID TAYLOR Administration Pantoprazole Sodium 40 mg 09/05/20 09:00 09/10/20 09:08 Pantoprazole 40 Mg Vial IVP 40 mg DAILY TAYLOR Administration Raltegravir 400 mg 09/05/20 21:00 09/10/20 11:27 Raltegravir Potassium 400 Mg Tab PO 400 mg BID TAYLOR Administration Sodium Chloride 10 ml 09/04/20 17:40 09/08/20 12:37 Flush - Normal Saline 10 Ml Syringe IVF 10 ml PRN PRN Administration Saline Flush - Exam Neck: no lymphadenopathy Heart: RRR, no murmur, no gallops, no rubs, normal peripheral pulses Respiratory: CTAB, no wheezes, no rales, no ronchi, normal chest expansion, no tachypnea Gastrointestinal: soft, non-tender, non-distended, normal bowel sounds, no palpable masses, no hepatomegaly, no splenomegaly, no bruit, no guarding, no rigidity Extremities: no edema Hosp A/P - Plan Fevers of unknown origin --Continue with empiric IV antibiotic, vancomycin/Zosyn/Bactrim --Appreciate ID input. s/p LP ----His CSF pressure is normal. About 15 mL of CSF fluid removed. Shows high protein level of 118. --CSF glucose is normal range. Lymphocytes about 75% -Cryptococcal antigen negative. In the CSF fluid. Microcytic anemia due to iron deficiency, and hx of GI bleed --No evidence of active bleeding. His iron study showed that he has iron deficiency anemia --s/p 1U PRBC, venofer x 1; cont supplemental iron --follow CBC, transfuse to keep Hb<7 HIV --CD4 count pending. Around mid 300 in May per ID --Patient is noncompliant with his antiviral medications --Dr. Cross started him on Isentress and Truvada Medical noncompliance --Patient was counseled with regard to this issue Substance abuse --Urine drug screen positive for PCP. 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 Venous doppler negative for DVT --Swelling resolved with IV Lasix. DVT ppx: SCD GI ppx: PPI Code Status: Full Anticipated Dispo: Home when medically stable Patient has ongoing fever, requiring ongoing Tylenol [id number] every 4 hours. White count is trending down. Blood and urine cultures negative so far. Currently on Zosyn. CD4 count is 392 He was incarcerated recently and released and seems living locally. so unlikely valley fever, histo etc causing his fever. His CD count good, not AIDS - so AIDS and other etiologies associated with the AIDS including, Kaposi's sarcoma causing fever is unlikely in his case. Will repeat the chest x-ray,UA and inflammatory markers. His blood glucose is relatively in good range patient is not a diabetic so unlikely diabetic neuropathy. 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 -We will follow with a TSH B12 and vitamin D level Symptoms are not adequately controlled so we are going to increase his gabapentin to the next level. Will increase gradually over a few weeks time to control his symptoms. 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 -He still has ongoing abdominal pain -His LFTs are in the normal range; his LDH is 274 -We will get a CT abdomen as well as lipase level. 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
--- NOTE | 2020-09-10 13:21 | PRG ---
DATE OF SERVICE: 09/10/2020 SUBJECTIVE: He had a 1 unit blood transfusion because his hemoglobin dropped to 6.1. He is otherwise feeling okay. He does not have any respiratory symptoms. No abdominal pain. He denies specifically dysuria or suprapubic tenderness. No hematuria. His vital signs are normalized. He has not had a fever in a while now. The exam is unchanged and not remarkable. The CT showed a marked thickening of bladder wall. He also has some inflammatory changes around the kidneys, but his urine culture was negative and he did not have pyuria of any significant extent in his urinalysis this admission. He had two urinalysis and the last one is from September 09 showed no wbc's in urine. ASSESSMENT AND DISCUSSION: Longstanding human immunodeficiency virus infection with relatively benign clinical course until last year when he stopped taking his medication and has developed recrudescence of his severe microcytic anemia. It seems like the anemia has a component of iron deficiency, but must have a component of anemia of chronic disease as well, which can present with microcytosis. This would explain the lack of improvement of his hemoglobin after iron transfusion since once he has blockage in transmission of the iron from the ferritin and other iron deposits to the red cell trackers in the bone marrow. This is typical of anemia of chronic inflammatory condition. We do not have a diagnosis for his chronic inflammatory condition at least the fever. He does have those findings in the kidney and in the bladder with thickening, but no negative cultures and no pyuria in the urinalysis. So, he may have to have a cystoscopy down the road. In the meantime, we will continue Biktarvy in the outpatient setting. He does not need any opportunistic infection prophylaxis at this point in view of his high CD4 cell count. I would recommend continuation of ibuprofen 800 mg three times daily, may be tried to decrease to 400 or 600 mg three times daily and hoping that the re-initiation of antiretroviral therapy will fix the inflammatory process. 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 Job ID: [id number]
--- NOTE | 2020-09-10 13:57 | PDOC.DS.DS ---
Provider - Provider Date of Admission: 09/04/20 16:40 Admitting Provider: Magdaleno Cuevas MD Primary Care Physician: NO PCP PROVIDER Course - Hospital Course Hospital Course: 45-year-old HIV male recent incarceration admitted for fever of unknown origin for the first few days he had persistent fever. Cultures were negative. He was started on HIV medication. There is no other obvious cause for his fever and it receded and he is afebrile for 48 hours prior to discharge. 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 Patient was off HIV medication for few months and then restarted back. That probably explains his the reconstitution syndrome is an etiology for his fever of unknown origin. An LP was performed which showed aseptic meningitis. He was treated empirically with IV vancomycin/zosyn/bactrim. Patient also had a diagnosis of chronic microcytic anemia which was not better explained by an active GI bleed. He denied a history of colon cancer and said his last colonoscopy 2 years came back normal. Fecal occult blood test came back negative. Other causes of his chronic microcytic anemia were explored such as sickle cell anemia and beta thalasemmia. Patient denies a family history of either of these conditions. Patient's chronic microcytic anemia will be managed outpatient with his GI or haem doctor. Iron supplement. 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 Other causes of neuropathy were explored such as diabetes. Patient had consistently normal blood sugar levels during hospital stay which ruled out diabetes. He is on gabapentin the dose increased to 400 mg 3 times daily and has to be followed with the primary doctor for optimization of his medication. About 15 mL of CSF fluid removed. Shows high protein level of 118. --CSF glucose is normal range. Lymphocytes about 75% -Cryptococcal antigen negative. In the CSF fluid. He got 2 units of packed RBC transfusion during his stay. HIVCD4 count is 392 He was incarcerated recently and released and seems living locally. so unlikely valley fever, histo etc causing his fever. His CD count good, not AIDS - so AIDS and other etiologies associated with the AIDS including, Kaposi's sarcoma causing fever is unlikely in his case. 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 Counseled Essential hypertension --On beta-james Lower extremity swelling --Echo OK. Venous doppler negative for DVT --Swelling resolved with IV Lasix. TSH B12 normal range and vitamin D level- Folate and vitamin D deficiency -supplemented. LFTs are in the normal range; his LDH is 274 -Lipase insignificant -CT abdomen shows splenomegaly and pyelonephritis. --His urine analysis is negative for both leukocyte esterase as well as nitrate. He does have 1+ bacteria but it is asymptomatic bacteriuria with the clinical course under the clinical content he is afebrile no pain in the flank area and mild elevated white count, will defer the antibiotic. Patient is discharged with biktarvy for his HIV and he will follow with Dr. Cross in 2 weeks. Prescription is given for the same. Resuscitation Status: 09/04/20 17:45 Resuscitation Status Routine Co-Sign Provider: Resuscitation Status: FULL: Full Resuscitation Discussed with: Patient - Labs Lab Results: 09/10/20 04:16 09/09/20 06:57 Abnormal Lab Results - Last 48 hrs 09/08/20 12:51: Hypochromia MODERATE=16-30 cells H, Polychromasia MODERATE = 3-4 cells H, Anisocytosis MODERATE=16-30 cells H, Microcytosis MODERATE=15-30 cells H, Ovalocytes MODERATE= 6-15 cells H 09/09/20 06:57: Sodium 134 L 09/09/20 14:08: Folate 5.30 L 09/09/20 16:54: Hgb 7.1 L 09/09/20 16:54: Crossmatch See Detail 09/09/20 17:00: Ur Specific [place] 1.048 H, Urine Protein 30 A, Urine Bacteria 1+ A, Urine Sperm 1+ A, Urine Culture Reflexed Yes A 09/10/20 04:16: WBC 11.4 H, RBC 3.59 L, Hgb 6.4 L, Hct 21.2 L, MCV 59.1 L, MCH 17.8 L, MCHC 30.1 L, RDW 28.3 H, MPV 12.3 H, Neutrophils % 79.0 H, Lymphocytes % 16.8 L, Neutrophils # 9.0 H 09/10/20 04:16: 25-OH Vitamin D Total 9.4 L Microbiology - Entire Visit 09/09/20 18:46 Urine clean catch Urine Culture - Preliminary NO GROWTH AT 24 HOURS 09/09/20 22:37 Stool - Loose Stool Occult Blood (LATASHA) - Final 09/04/20 14:43 Venous blood - Left Arm Blood Culture - Final NO GROWTH IN 5 DAYS 09/04/20 14:43 Venous blood - Right Arm Blood Culture - Final NO GROWTH IN 5 DAYS 09/06/20 10:41 Spinal Fluid Culture Cryptococcal Antigen - Final 09/04/20 15:50 Urine voided Urine Culture - Final NO GROWTH AT 36 HOURS 09/04/20 14:35 Nasal swab Influenza Types A,B Direct EIA - Final - Physical Exam Vitals: Vital Signs (12 hours) Temp Pulse Pulse Resp BP BP Pulse Ox 09/10/20 12:00 97.5 F L 09/10/20 11:30 97.5 F L 73 18 148/91 H 99 09/10/20 11:05 97.5 F L 84 18 137/93 H 100 09/10/20 08:00 97.4 F L 82 18 141/91 H 99 09/10/20 04:00 97.6 F Weight Weight 226 lb Physical Exam: The patient was seen and examined on the day of discharge. he is getting the tr ansfusion. It appears no immediate adverse reaction. We will wait at least 1 hour and check his vitals and if he is and hemodynamically stable then discharge him to home. Plan - Discharge Medications Prescriptions: Metoprolol Tartrate [Lopressor] 25 mg PO BID 30 Days #60 tab Ibuprofen [Motrin] 800 mg PO Q8HR 10 Days #20 tab Gabapentin [Neurontin] 400 mg PO TID 30 Days #90 mg Home Medications: Medication Instructions Recorded Confirmed Type Amlodipine [Norvasc] 10 mg PO DAILY 09/04/20 09/04/20 History Gabapentin [Neurontin] 400 mg PO TID 30 Days #90 mg 09/10/20 Rx Ibuprofen [Motrin] 800 mg PO Q8HR 10 Days #20 tab 09/10/20 Rx Metoprolol Tartrate [Lopressor] 25 mg PO BID 30 Days #60 tab 09/10/20 Rx Allergies: Iodinated Contrast Media Allergy (Verified 09/04/20 23:26) PER PT - Follow up Plan Referrals: PROVIDER,NO PCP [Primary Care Provider] - Disposition: HOME Quality - Care Measures CORE MEASURES:: N/A
[2020-09-10] MEDS: Acetaminophen 325 MG TAB PO PRN (14:34)
[2020-09-10 16:30] VITALS: BP 141/93; TEMP 97.5
[2020-09-11 07:15] LABS: CMV DNA-PCR Test Positive < 200 IU/mL (Negative)
[2020-09-11 10:15] LABS: QuantiFERON-TB Gold Plus Negative (Negative)
== END 2020-09-10 17:56 | disposition home or self-care (01) | DRG 977 ==
LOC: ERS 13:43 → ERHOLD 16:40 → ONC 19:15
PROVIDERS: ADMIT Student in an Organized Health Care Education/Training Program; ATTEND Internal Medicine
PROC: 30233N1 Transfusion of Nonautologous Red Blood Cells into Peripheral Vein, Percutaneous Approach (ICD-10-PCS; principal; 2020-09-05)
PROC: 009U3ZX Drainage of Spinal Canal, Percutaneous Approach, Diagnostic (ICD-10-PCS; 2020-09-06)
PROC: B01BZZZ Fluoroscopy of Spinal Cord (ICD-10-PCS; 2020-09-06)
DX: D89.3 Immune reconstitution syndrome (principal); B20 Human immunodeficiency virus [HIV] disease; G03.0 Nonpyogenic meningitis; G99.0 Autonomic neuropathy in diseases classified elsewhere; I10 Essential (primary) hypertension; M79.89 Other specified soft tissue disorders; R82.71 Bacteriuria; Z20.828 Contact with and (suspected) exposure to other viral communicable diseases; F17.290 Nicotine dependence, other tobacco product, uncomplicated; D50.9 Iron deficiency anemia, unspecified; T37.5X5A Adverse effect of antiviral drugs, initial encounter; F16.10 Hallucinogen abuse, uncomplicated; E55.9 Vitamin D deficiency, unspecified; E53.8 Deficiency of other specified B group vitamins; Z91.19 Patient's noncompliance with other medical treatment and regimen; Z91.14 Patient's other noncompliance with medication regimen; Z79.899 Other long term (current) drug therapy
CPT/HCPCS: 36415; 36430; 62270; 70553; 71045; 74177; 80048; 80053; 80202; 80306; 81001; 81003; 81015; 82274; 82306; 82553; 82607; 82728; 82746; 82945; 83010; 83540; 83550; 83605; 83615; 83690; 83735; 83880; 84157; 84443; 84484; 84550; 85018; 85025; 85046; 85048; 85060; 85652; 86140; 86361; 86480; 86780; 86850; 86900; 86901; 86922; 87040; 87086; 87497; 87529; 87798; 87804; 87899; 89051; 93005; 93306; 93970; 96365; 96375; A9579; C9113; J1940; J2543; J2916; J3010; J3370; J3490; J7030; J7512; P9016; U0002

== ENCOUNTER 2023-03-30 01:54 | Inpatient (IN) | payer SELFPAY ==
[2023-03-30 02:26] LABS: #Monocytes 0.4 thou/uL (0.11-0.59); #Neutrophils 5.7 thou/uL (1.40-6.50); %Basophils 0.1 % (0.0-1.0); %Lymphocytes 11.2 % (21.0-51.0); %Monocytes 5.1 % (0.0-10.0); %Neutrophils 83.3 % (42.0-75.0); Hemoglobin 8.2 g/dL (14.0-18.0); Mean Corpuscular HGB CONC 30.9 g/dL (32.0-36.0); Mean Corpuscular Hemoglobin 19.1 pg (27.0-31.0); Mean Corpuscular Volume 61.6 fl (78.0-98.0); Platelet Count 235 10x3/uL (130-400); RBC Distribution Width 23.4 % (11.5-14.5); White Blood Cell (WBC) Count 6.8 10x3/uL (4.8-10.8)
[2023-03-30 02:48] LABS: ALT (SGPT) 138 U/L (8-55); AST (SGOT) 240 U/L (5-34); Albumin 3.2 g/dL (3.5-5.0); Alkaline Phosphatase 371 U/L (40-110); Anion Gap 12 mmol/L (10-20); BUN (Urea Nitrogen) 12 mg/dL (8.9-20.6); Bilirubin, Total 2.2 mg/dL (0.2-1.2); Calc. Creatinine Clearance 0 mL/min (70-130); Calcium 8.7 mg/dL (7.8-10.44); Carbon Dioxide 19 mmol/L (22-29); Chloride 104 mmol/L (98-107); Estimated GFR 60; Globulin 6.2 g/dL (2.4-3.5); Glucose 167 mg/dL (70-105); Potassium 3.7 mmol/L (3.5-5.1); Protein, Total 9.4 g/dL (6.0-8.3); Sodium 131 mmol/L (136-145)
[2023-03-30 03:01] LABS: Lipase 5133 U/L (8-78)
[2023-03-30 03:06] LABS: Anisocytosis MODERATE=16-30 cells HPF (0-5); CellaVision Operator ID LAB.JMM; Elliptocytes SLIGHT = 2-5 cells HPF (0-1); Hypochromia SLIGHT = 6-15 cells HPF (0-5); Macrocytosis SLIGHT = 6-15 cells HPF (0-5); Platelet Adequacy Comment Platelets Normal; Polychromasia SLIGHT = 2-3 cells HPF (0-2)
[2023-03-30] MEDS ORDERED: Ondansetron PF 4 MG/2 ML Vial ONE ×2 (04:23→11:04)
[2023-03-30] MEDS ORDERED: Morphine 4 MG/ML VIAL ONE ×2 (06:05→11:04)
[2023-03-30] MEDS ORDERED: Famotidine/PF 20 mg/2ml Vial ONE (06:16)
[2023-03-30] MEDS ORDERED: methylPREDNISolone Sod Succ 40 MG VIAL ONE (06:16)
[2023-03-30] MEDS ORDERED: diphenhydrAMINE 50 MG/ML VIAL ONE (06:17)
[2023-03-30] MEDS ORDERED: Piperacillin/Tazobactam 4.5 GM VIAL ONE (07:32)
[2023-03-30] MEDS ORDERED: Iopamidol-370 76% 500 ML MDV (1 ML CHARGE) ONE (08:29)
[2023-03-30] MEDS ORDERED: Ondansetron PF 4 MG/2 ML Vial IVP PRN (10:20)
[2023-03-30] MEDS ORDERED: Ondansetron ODT 4 MG TAB PO PRN (10:20)
[2023-03-30 13:42] LABS: Bacteria/HPF None Seen HPF (None Seen); Bilirubin 1+ (Negative); Blood, Urine 1+ (Negative); CAUTI Indications for Culture Pelvic or flank pain; Clarity Clear (Clear); Glucose, Urine (Dipstick) Normal (Negative); Ketone, Urine Negative (Negative); Leukocyte Negative Leu/uL (Negative); Nitrite Negative (Negative); Protein, Urine (Dipstick) 200 mg/dL (Neg-Trace); RBC/HPF 0-3 HPF (0-3); Specific Gravity, Urine 1.042 (1.002-1.036); Squamous Epithelial None Seen HPF (0-3); WBC/HPF 0-3 HPF (0-3)
[2023-03-30 13:44] LABS: Urine Culture Reflex No No
[2023-03-30] MEDS ORDERED: Metoprolol Tartrate 25 MG TAB PO SCH (13:45)
[2023-03-30 14:29] LABS: Troponin I 0.043 ng/mL (< 0.028)
[2023-03-30] MEDS ORDERED: Metoprolol Tartrate 25 MG TAB ONE (16:30)
[2023-03-30] MEDS: Sodium Chloride 0.9% 1,000 ML IV SCH (18:20)
[2023-03-30 20:11] LABS: Troponin I 0.034 ng/mL (< 0.028)
[2023-03-30] MEDS: Metoprolol Tartrate 25 MG TAB PO SCH (20:58)
[2023-03-30] MEDS: Morphine 4 MG/ML VIAL SLOW IVP PRN (20:59)
[2023-03-30 21:06] VITALS: BMI 27.9
[2023-03-31] MEDS: Morphine 4 MG/ML VIAL SLOW IVP PRN ×3 (00:54→19:57)
[2023-03-31] MEDS: Sodium Chloride 0.9% 1,000 ML IV SCH ×2 (00:54→07:00)
[2023-03-31 05:14] LABS: #Monocytes 0.7 thou/uL (0.11-0.59); %Basophils 0.2 % (0.0-1.0); %Eosinophils 0.1 % (0.0-10.0); %Monocytes 8.7 % (0.0-10.0); %Neutrophils 71.6 % (42.0-75.0); Hemoglobin 8.3 g/dL (14.0-18.0); Mean Corpuscular HGB CONC 30.9 g/dL (32.0-36.0); Mean Corpuscular Hemoglobin 18.9 pg (27.0-31.0); Mean Corpuscular Volume 61.4 fl (78.0-98.0); Platelet Count 297 10x3/uL (130-400); RBC Distribution Width 23.6 % (11.5-14.5); Red Blood Cell (RBC) Count 4.38 mill/uL (4.70-6.10); White Blood Cell (WBC) Count 8.4 10x3/uL (4.8-10.8)
[2023-03-31 05:32] LABS: ALT (SGPT) 136 U/L (8-55); AST (SGOT) 114 U/L (5-34); Alkaline Phosphatase 384 U/L (40-110); Bilirubin, Direct 3.8 mg/dL (0.1-0.3); Bilirubin, Total 5.1 mg/dL (0.2-1.2); Protein, Total 8.9 g/dL (6.0-8.3)
[2023-03-31 05:34] LABS: Anion Gap 9 mmol/L (10-20); BUN (Urea Nitrogen) 14 mg/dL (8.9-20.6); Calc. Creatinine Clearance 88 mL/min (70-130); Calcium 8.6 mg/dL (7.8-10.44); Carbon Dioxide 21 mmol/L (22-29); Chloride 107 mmol/L (98-107); Estimated GFR 65; Glucose 104 mg/dL (70-105); Iron 17 ug/dL (65-175); Iron Binding Capacity, Total 251 mcg/dL (261-462); Lipase 576 U/L (8-78); Potassium 4.3 mmol/L (3.5-5.1); Sodium 133 mmol/L (136-145)
[2023-03-31 05:58] LABS: Anisocytosis MODERATE=16-30 cells HPF (0-5); CellaVision Operator ID lab.abc; Elliptocytes SLIGHT = 2-5 cells HPF (0-1); Hypochromia SLIGHT = 6-15 cells HPF (0-5); Microcytosis MODERATE=15-30 cells HPF (0-5); Platelet Adequacy Comment Platelets Normal; Polychromasia SLIGHT = 2-3 cells HPF (0-2); Target Cells SLIGHT = 2-5 cells HPF (0-1)
[2023-03-31] MEDS: Metoprolol Tartrate 25 MG TAB PO SCH ×2 (08:23→20:46)
[2023-03-31] MEDS ORDERED: fentaNYL 50 mcg/mL 1 mL Vial ONE (09:09)
[2023-03-31] MEDS ORDERED: Famotidine/PF 20 mg/2ml Vial ONE (09:17)
[2023-03-31] MEDS ORDERED: Iopamidol 30 ML FS ONE (09:53)
[2023-03-31] MEDS ORDERED: Indomethacin 50 MG SUPP ONE (09:54)
[2023-03-31] MEDS ORDERED: Midazolam HCl 2 mg/2 ml Vial ONE (10:01)
[2023-03-31] MEDS ORDERED: PROPOFOL 200 MG/20 ML VIAL ONE (10:15)
[2023-03-31] MEDS ORDERED: Rocuronium Bromide 10 MG/ML (10ML VIAL) ONE (10:15)
[2023-03-31] MEDS ORDERED: PHENYLEPHRINE-NS 100 MCG/ML 10 ML SYRINGE ONE (10:15)
[2023-03-31] MEDS ORDERED: Lidocaine 1% PF 5 ML VIAL ONE (10:15)
[2023-03-31] MEDS ORDERED: GLYCOPYRROLATE/PF 0.2 MG/ML VIAL ONE (10:15)
[2023-03-31] MEDS ORDERED: NEOSTIGMINE 3 MG/3 ML SYR 3 MG/3 ML SYRINGE ONE (10:15)
[2023-03-31] MEDS ORDERED: ePHEDrine Sulfate 50 MG/10 ML VIAL ONE (10:15)
[2023-03-31] MEDS ORDERED: Ondansetron PF 4 MG/2 ML Vial ONE (10:15)
[2023-03-31] MEDS ORDERED: Sodium Chloride For Inhalation 0.9% 3 ML NEB ONE (11:28)
[2023-03-31] MEDS ORDERED: Racepinephrine 2.25% 0.5 ML NEB ONE (11:28)
[2023-03-31] MEDS ORDERED: SUGAMMADEX SODIUM 200 MG/2 ML VIAL ONE (11:29)
[2023-03-31] MEDS ORDERED: Labetalol HCl 100 MG/20 ML VIAL ONE (11:33)
[2023-03-31] MEDS ORDERED: Piperacillin/Tazobactam 3.375 GM in Sodium Chloride 0.9% 100 ML IVPB SCH (13:00)
[2023-03-31] MEDS: Piperacillin/Tazobactam 3.375 GM in Sodium Chloride 0.9% 100 ML IVPB SCH (16:44)
[2023-03-31] MEDS ORDERED: Morphine 2 MG/ML VIAL SLOW IVP SCH (20:30)
[2023-03-31] MEDS: HYDROcodone/Acetaminophen 5/325 mg Tablet PO PRN (22:40)
[2023-04-01] MEDS: Sodium Chloride 0.9% 1,000 ML IV SCH ×3 (00:36→22:10)
[2023-04-01] MEDS: Piperacillin/Tazobactam 3.375 GM in Sodium Chloride 0.9% 100 ML IVPB SCH ×3 (00:36→18:01)
[2023-04-01] MEDS ORDERED: Sevoflurane 250 ML INH ANEST BOTTLE ONE (03:29)
[2023-04-01 05:31] LABS: ALT (SGPT) 105 U/L (8-55); AST (SGOT) 86 U/L (5-34); Albumin 2.5 g/dL (3.5-5.0); Alkaline Phosphatase 355 U/L (40-110); Anion Gap 11 mmol/L (10-20); BUN (Urea Nitrogen) 19 mg/dL (8.9-20.6); Calc. Creatinine Clearance 69 mL/min (70-130); Calcium 8.1 mg/dL (7.8-10.44); Carbon Dioxide 21 mmol/L (22-29); Chloride 105 mmol/L (98-107); Estimated GFR 48; Glucose 81 mg/dL (70-105); Potassium 3.8 mmol/L (3.5-5.1); Protein, Total 7.5 g/dL (6.0-8.3); Sodium 133 mmol/L (136-145)
[2023-04-01 05:40] LABS: #Monocytes 0.8 thou/uL (0.11-0.59); #Neutrophils 3.4 thou/uL (1.40-6.50); %Basophils 0.2 % (0.0-1.0); %Eosinophils 0.7 % (0.0-10.0); %Lymphocytes 26.7 % (21.0-51.0); %Monocytes 13.3 % (0.0-10.0); %Neutrophils 58.6 % (42.0-75.0); Hemoglobin 6.9 g/dL (14.0-18.0); Mean Corpuscular HGB CONC 30.9 g/dL (32.0-36.0); Mean Corpuscular Volume 61.4 fl (78.0-98.0); Platelet Count 181 10x3/uL (130-400); RBC Distribution Width 23.3 % (11.5-14.5); Red Blood Cell (RBC) Count 3.63 mill/uL (4.70-6.10); White Blood Cell (WBC) Count 5.9 10x3/uL (4.8-10.8)
[2023-04-01] MEDS ORDERED: SUGAMMADEX SODIUM 200 MG/2 ML VIAL ONE (06:43)
[2023-04-01] MEDS ORDERED: fentaNYL PF 100 MCG/2 ML SYRINGE ONE (06:43)
[2023-04-01] MEDS ORDERED: Bupivacaine/Epinephrine 0.25% 30 ML VIAL ONE (07:28)
[2023-04-01] MEDS ORDERED: Iopamidol 0 ML ONE (07:28)
[2023-04-01 07:53] LABS: Anisocytosis MODERATE=16-30 cells HPF (0-5); CellaVision Operator ID LAB.CMB; Macrocytosis SLIGHT = 6-15 cells HPF (0-5); Microcytosis MODERATE=15-30 cells HPF (0-5); Ovalocytes SLIGHT = 2-5 cells HPF (0-1); Platelet Adequacy Comment Platelets Normal; Polychromasia SLIGHT = 2-3 cells HPF (0-2); Target Cells SLIGHT = 2-5 cells HPF (0-1)
[2023-04-01] MEDS ORDERED: Sodium Chloride 0.9% 0 ML ONE (08:11)
[2023-04-01] MEDS ORDERED: Piperacillin/Tazobactam 3.375 GM VIAL ONE (08:11)
[2023-04-01] MEDS ORDERED: Sodium Chloride 0.9% 1,000 ML IV SCH ×2 (08:30→12:15)
[2023-04-01 08:37] LABS: INR-International Normal Ratio 1.4; PTT 37.7 sec (22.9-36.1); Prothrombin Time 17.9 sec (12.0-14.7)
[2023-04-01 08:59] LABS: RBC Morphology 2; Tear Drops SLIGHT = 2-5 cells HPF (0-1)
[2023-04-01] MEDS: Metoprolol Tartrate 25 MG TAB PO SCH ×2 (10:59→20:28)
[2023-04-01 14:38] LABS: %CD4 (Helper/Inducer) 10.2 % (30.8-58.5); Absolute CD4 143 /uL (359-1519); Lymphocytes/Gated Cell Count 1.4 x10E3/uL (0.7-3.1); Total Lymphocyte 18 % (Not Estab.); WBC Total Count 7.4 x10E3/uL (3.4-10.8); nRBC 1 % (0 - 0)
[2023-04-01] MEDS: HYDROcodone/Acetaminophen 5/325 mg Tablet PO PRN ×2 (14:54→20:27)
[2023-04-01] MEDS ORDERED: Pantoprazole 40 MG VIAL IVP SCH (15:15)
[2023-04-01] MEDS: Morphine 4 MG/ML VIAL SLOW IVP PRN ×2 (16:42→22:09)
[2023-04-01 23:37] LABS: LOG10 HIV-1 RNA 4.009 (.)
[2023-04-02] MEDS: Piperacillin/Tazobactam 3.375 GM in Sodium Chloride 0.9% 100 ML IVPB SCH ×3 (01:28→17:37)
[2023-04-02 04:32] LABS: #Eosinphils 0.1 thou/uL (0.0-0.7); #Monocytes 0.6 thou/uL (0.11-0.59); #Neutrophils 4.1 thou/uL (1.40-6.50); %Basophils 0.3 % (0.0-1.0); %Eosinophils 1.6 % (0.0-10.0); %Lymphocytes 21.8 % (21.0-51.0); %Monocytes 9.2 % (0.0-10.0); %Neutrophils 66.8 % (42.0-75.0); Hemoglobin 8.2 g/dL (14.0-18.0); Mean Corpuscular HGB CONC 31.7 g/dL (32.0-36.0); Mean Corpuscular Hemoglobin 19.8 pg (27.0-31.0); Mean Corpuscular Volume 62.4 fl (78.0-98.0); Platelet Count 208 10x3/uL (130-400); RBC Distribution Width 25.3 % (11.5-14.5); Red Blood Cell (RBC) Count 4.15 mill/uL (4.70-6.10); White Blood Cell (WBC) Count 6.1 10x3/uL (4.8-10.8)
[2023-04-02 04:53] LABS: ALT (SGPT) 81 U/L (8-55); AST (SGOT) 49 U/L (5-34); Albumin 2.4 g/dL (3.5-5.0); Alkaline Phosphatase 323 U/L (40-110); Anion Gap 10 mmol/L (10-20); BUN (Urea Nitrogen) 17 mg/dL (8.9-20.6); Bilirubin, Total 4.4 mg/dL (0.2-1.2); Calc. Creatinine Clearance 82 mL/min (70-130); Carbon Dioxide 21 mmol/L (22-29); Chloride 104 mmol/L (98-107); Estimated GFR 59; Globulin 5.2 g/dL (2.4-3.5); Glucose 86 mg/dL (70-105); Lipase 85 U/L (8-78); Potassium 3.6 mmol/L (3.5-5.1); Protein, Total 7.6 g/dL (6.0-8.3); Sodium 131 mmol/L (136-145)
[2023-04-02] MEDS: HYDROcodone/Acetaminophen 5/325 mg Tablet PO PRN ×3 (06:28→20:58)
[2023-04-02 07:10] LABS: INR-International Normal Ratio 1.3; PTT 38.2 sec (22.9-36.1); Prothrombin Time 16.3 sec (12.0-14.7)
[2023-04-02 07:25] LABS: Troponin I 0.115 ng/mL (< 0.028)
[2023-04-02] MEDS: Metoprolol Tartrate 25 MG TAB PO SCH ×2 (09:51→20:58)
[2023-04-02] MEDS: Pantoprazole 40 MG VIAL IVP SCH (09:52)
[2023-04-02] MEDS: Morphine 4 MG/ML VIAL SLOW IVP PRN ×2 (10:01→14:26)
[2023-04-02] MEDS ORDERED: ADENOSINE 60 MG/20 ML SDV ONE (13:23)
[2023-04-02] MEDS: Sodium Chloride 0.9% 1,000 ML IV SCH (14:27)
[2023-04-03] MEDS: Piperacillin/Tazobactam 3.375 GM in Sodium Chloride 0.9% 100 ML IVPB SCH ×3 (01:00→17:58)
[2023-04-03 04:53] LABS: #Eosinphils 0.2 thou/uL (0.0-0.7); #Monocytes 0.5 thou/uL (0.11-0.59); #Neutrophils 3.3 thou/uL (1.40-6.50); %Basophils 0.6 % (0.0-1.0); %Eosinophils 3.8 % (0.0-10.0); %Lymphocytes 20.3 % (21.0-51.0); %Monocytes 9.1 % (0.0-10.0); %Neutrophils 65.6 % (42.0-75.0); Hemoglobin 8.1 g/dL (14.0-18.0); Mean Corpuscular HGB CONC 31.4 g/dL (32.0-36.0); Mean Corpuscular Hemoglobin 20.1 pg (27.0-31.0); Platelet Count 203 10x3/uL (130-400); RBC Distribution Width 25.6 % (11.5-14.5); Red Blood Cell (RBC) Count 4.02 mill/uL (4.70-6.10)
[2023-04-03 04:57] LABS: Mean Corpuscular Volume 64.2 fl (78.0-98.0)
[2023-04-03 05:15] LABS: Anion Gap 7 mmol/L (10-20); BUN (Urea Nitrogen) 16 mg/dL (8.9-20.6); Calc. Creatinine Clearance 87 mL/min (70-130); Calcium 7.9 mg/dL (7.8-10.44); Carbon Dioxide 22 mmol/L (22-29); Chloride 107 mmol/L (98-107); Estimated GFR 64; Glucose 113 mg/dL (70-105); Potassium 3.2 mmol/L (3.5-5.1); Sodium 133 mmol/L (136-145)
[2023-04-03] MEDS ORDERED: Carvedilol 6.25 MG TAB PO SCH (09:30)
[2023-04-03] MEDS: Sacubitril 24MG/Valsartan 26 MG TAB PO SCH ×2 (10:24→20:49)
[2023-04-03] MEDS: Pantoprazole 40 MG VIAL IVP SCH (10:24)
[2023-04-03] MEDS: Metoprolol Tartrate 25 MG TAB PO SCH (10:34)
[2023-04-03 10:45] LABS: ALT (SGPT) 57 U/L (8-55); AST (SGOT) 28 U/L (5-34); Albumin 2.4 g/dL (3.5-5.0); Alkaline Phosphatase 279 U/L (40-110); Bilirubin, Direct 1.1 mg/dL (0.1-0.3); Bilirubin, Total 1.5 mg/dL (0.2-1.2); Protein, Total 7.3 g/dL (6.0-8.3)
[2023-04-03] MEDS: Morphine 4 MG/ML VIAL SLOW IVP PRN (17:59)
[2023-04-03] MEDS: Carvedilol 6.25 MG TAB PO SCH (17:59)
[2023-04-03] MEDS: Senokot S 8.6-50 MG TAB PO SCH (20:49)
[2023-04-03] MEDS: HYDROcodone/Acetaminophen 5/325 mg Tablet PO PRN (20:51)
[2023-04-04] MEDS: Piperacillin/Tazobactam 3.375 GM in Sodium Chloride 0.9% 100 ML IVPB SCH ×3 (01:24→16:39)
[2023-04-04 05:41] LABS: Anion Gap 10 mmol/L (10-20); BUN (Urea Nitrogen) 12 mg/dL (8.9-20.6); Calc. Creatinine Clearance 114 mL/min (70-130); Calcium 8.1 mg/dL (7.8-10.44); Carbon Dioxide 21 mmol/L (22-29); Chloride 108 mmol/L (98-107); Estimated GFR 82; Glucose 96 mg/dL (70-105); Potassium 3.6 mmol/L (3.5-5.1); Sodium 135 mmol/L (136-145)
[2023-04-04 07:38] LABS: #Eosinphils 0.2 thou/uL (0.0-0.7); #Monocytes 0.6 thou/uL (0.11-0.59); #Neutrophils 2.7 thou/uL (1.40-6.50); %Basophils 0.6 % (0.0-1.0); %Eosinophils 5.2 % (0.0-10.0); %Lymphocytes 22.4 % (21.0-51.0); %Monocytes 12.5 % (0.0-10.0); %Neutrophils 58.9 % (42.0-75.0); Hemoglobin 8.6 g/dL (14.0-18.0); Mean Corpuscular HGB CONC 30.6 g/dL (32.0-36.0); Mean Corpuscular Hemoglobin 19.9 pg (27.0-31.0); Platelet Count 189 10x3/uL (130-400); Red Blood Cell (RBC) Count 4.32 mill/uL (4.70-6.10); White Blood Cell (WBC) Count 4.7 10x3/uL (4.8-10.8)
[2023-04-04] MEDS: Sacubitril 24MG/Valsartan 26 MG TAB PO SCH ×2 (08:20→21:13)
[2023-04-04] MEDS: Pantoprazole 40 MG VIAL IVP SCH (08:20)
[2023-04-04] MEDS: Carvedilol 6.25 MG TAB PO SCH ×2 (08:20→16:41)
[2023-04-04] MEDS: Senokot S 8.6-50 MG TAB PO SCH ×2 (08:21→21:14)
[2023-04-04] MEDS: HYDROcodone/Acetaminophen 5/325 mg Tablet PO PRN ×2 (16:38→21:13)
[2023-04-05] MEDS: Piperacillin/Tazobactam 3.375 GM in Sodium Chloride 0.9% 100 ML IVPB SCH ×3 (02:17→16:53)
[2023-04-05 04:45] LABS: #Eosinphils 0.2 thou/uL (0.0-0.7); #Monocytes 0.6 thou/uL (0.11-0.59); #Neutrophils 2.5 thou/uL (1.40-6.50); %Basophils 0.7 % (0.0-1.0); %Eosinophils 5.1 % (0.0-10.0); %Lymphocytes 25.9 % (21.0-51.0); %Monocytes 14.1 % (0.0-10.0); Hemoglobin 8.7 g/dL (14.0-18.0); Mean Corpuscular Volume 64.7 fl (78.0-98.0); Platelet Count 164 10x3/uL (130-400); RBC Distribution Width 26.2 % (11.5-14.5); Red Blood Cell (RBC) Count 4.34 mill/uL (4.70-6.10); White Blood Cell (WBC) Count 4.6 10x3/uL (4.8-10.8)
[2023-04-05 05:09] LABS: ALT (SGPT) 38 U/L (8-55); AST (SGOT) 24 U/L (5-34); Albumin 2.4 g/dL (3.5-5.0); Alkaline Phosphatase 201 U/L (40-110); Anion Gap 9 mmol/L (10-20); BUN (Urea Nitrogen) 10 mg/dL (8.9-20.6); Bilirubin, Total 1.3 mg/dL (0.2-1.2); Calc. Creatinine Clearance 120 mL/min (70-130); Calcium 8.1 mg/dL (7.8-10.44); Carbon Dioxide 23 mmol/L (22-29); Chloride 107 mmol/L (98-107); Estimated GFR 87; Globulin 5.1 g/dL (2.4-3.5); Glucose 101 mg/dL (70-105); Potassium 3.2 mmol/L (3.5-5.1); Protein, Total 7.5 g/dL (6.0-8.3); Sodium 136 mmol/L (136-145)
[2023-04-05] MEDS: Sacubitril 24MG/Valsartan 26 MG TAB PO SCH ×2 (08:56→20:25)
[2023-04-05] MEDS: Pantoprazole 40 MG VIAL IVP SCH (08:56)
[2023-04-05] MEDS: Senokot S 8.6-50 MG TAB PO SCH ×2 (08:57→20:25)
[2023-04-05] MEDS: Carvedilol 6.25 MG TAB PO SCH ×2 (08:57→16:52)
[2023-04-06 05:20] LABS: #Eosinphils 0.2 thou/uL (0.0-0.7); #Monocytes 0.6 thou/uL (0.11-0.59); #Neutrophils 2.6 thou/uL (1.40-6.50); %Basophils 0.4 % (0.0-1.0); %Eosinophils 4.9 % (0.0-10.0); %Lymphocytes 27.9 % (21.0-51.0); %Monocytes 12.5 % (0.0-10.0); %Neutrophils 53.9 % (42.0-75.0); Hemoglobin 8.5 g/dL (14.0-18.0); Mean Corpuscular HGB CONC 30.7 g/dL (32.0-36.0); Mean Corpuscular Hemoglobin 19.9 pg (27.0-31.0); Platelet Count 142 10x3/uL (130-400); Red Blood Cell (RBC) Count 4.27 mill/uL (4.70-6.10); White Blood Cell (WBC) Count 4.9 10x3/uL (4.8-10.8)
[2023-04-06 05:43] LABS: ALT (SGPT) 33 U/L (8-55); AST (SGOT) 25 U/L (5-34); Albumin 2.5 g/dL (3.5-5.0); Alkaline Phosphatase 186 U/L (40-110); Anion Gap 10 mmol/L (10-20); BUN (Urea Nitrogen) 10 mg/dL (8.9-20.6); Bilirubin, Total 1.1 mg/dL (0.2-1.2); Calc. Creatinine Clearance 101 mL/min (70-130); Calcium 8.1 mg/dL (7.8-10.44); Carbon Dioxide 23 mmol/L (22-29); Chloride 105 mmol/L (98-107); Estimated GFR 71; Globulin 5.1 g/dL (2.4-3.5); Glucose 106 mg/dL (70-105); Potassium 3.5 mmol/L (3.5-5.1); Protein, Total 7.6 g/dL (6.0-8.3); Sodium 134 mmol/L (136-145)
[2023-04-06 05:46] LABS: Mean Corpuscular Volume 64.9 fl (78.0-98.0)
[2023-04-06 05:47] LABS: RBC Distribution Width 26.7 % (11.5-14.5)
[2023-04-06] MEDS: Carvedilol 6.25 MG TAB PO SCH ×2 (09:25→17:29)
[2023-04-06] MEDS: Potassium Chloride 20 MEQ TAB PO SCH (09:25)
[2023-04-06] MEDS: Pantoprazole 40 MG VIAL IVP SCH (09:26)
[2023-04-06] MEDS: Senokot S 8.6-50 MG TAB PO SCH ×2 (09:26→21:22)
[2023-04-06] MEDS: Sacubitril 24MG/Valsartan 26 MG TAB PO SCH ×2 (09:26→21:21)
[2023-04-06] MEDS: Aspirin 81 mg Enteric Coated Tablet PO SCH (09:26)
[2023-04-06] MEDS: Acetaminophen 500 MG TAB PO PRN (21:22)
[2023-04-07 05:10] LABS: #Eosinphils 0.2 thou/uL (0.0-0.7); #Monocytes 0.6 thou/uL (0.11-0.59); #Neutrophils 1.8 thou/uL (1.40-6.50); %Basophils 0.8 % (0.0-1.0); %Lymphocytes 32.1 % (21.0-51.0); %Monocytes 15.1 % (0.0-10.0); %Neutrophils 46.5 % (42.0-75.0); Hemoglobin 7.9 g/dL (14.0-18.0); Mean Corpuscular HGB CONC 30.6 g/dL (32.0-36.0); Mean Corpuscular Hemoglobin 19.8 pg (27.0-31.0); Platelet Count 134 10x3/uL (130-400); RBC Distribution Width 26.3 % (11.5-14.5); Red Blood Cell (RBC) Count 3.98 mill/uL (4.70-6.10); White Blood Cell (WBC) Count 3.8 10x3/uL (4.8-10.8)
[2023-04-07 05:11] LABS: Mean Corpuscular Volume 64.8 fl (78.0-98.0)
[2023-04-07 05:30] LABS: ALT (SGPT) 28 U/L (8-55); AST (SGOT) 24 U/L (5-34); Albumin 2.5 g/dL (3.5-5.0); Alkaline Phosphatase 166 U/L (40-110); Anion Gap 9 mmol/L (10-20); BUN (Urea Nitrogen) 13 mg/dL (8.9-20.6); Bilirubin, Total 1.2 mg/dL (0.2-1.2); Calc. Creatinine Clearance 105 mL/min (70-130); Calcium 8.2 mg/dL (7.8-10.44); Carbon Dioxide 23 mmol/L (22-29); Chloride 106 mmol/L (98-107); Estimated GFR 74; Glucose 100 mg/dL (70-105); Potassium 3.4 mmol/L (3.5-5.1); Protein, Total 7.5 g/dL (6.0-8.3); Sodium 135 mmol/L (136-145)
[2023-04-07] MEDS: Sacubitril 24MG/Valsartan 26 MG TAB PO SCH ×2 (09:46→20:33)
[2023-04-07] MEDS: Senokot S 8.6-50 MG TAB PO SCH ×2 (09:46→20:33)
[2023-04-07] MEDS: Aspirin 81 mg Enteric Coated Tablet PO SCH (09:46)
[2023-04-07] MEDS: Potassium Chloride 20 MEQ TAB PO SCH (09:47)
[2023-04-07] MEDS: Carvedilol 6.25 MG TAB PO SCH ×2 (09:47→16:48)
[2023-04-07] MEDS: Pantoprazole 40 MG VIAL IVP SCH (09:48)
[2023-04-07] MEDS: Acetaminophen 500 MG TAB PO PRN (23:25)
[2023-04-08] MEDS: Senokot S 8.6-50 MG TAB PO SCH ×2 (09:51→21:30)
[2023-04-08] MEDS: Aspirin 81 mg Enteric Coated Tablet PO SCH (09:52)
[2023-04-08] MEDS: Sacubitril 24MG/Valsartan 26 MG TAB PO SCH ×2 (09:52→21:30)
[2023-04-08] MEDS: Carvedilol 6.25 MG TAB PO SCH ×2 (09:52→17:59)
[2023-04-08] MEDS: Potassium Chloride 20 MEQ TAB PO SCH ×2 (09:53→15:07)
[2023-04-08] MEDS ORDERED: Potassium Chloride 20 MEQ TAB PO SCH (13:00)
[2023-04-08] MEDS: HYDROcodone/Acetaminophen 5/325 mg Tablet PO PRN ×2 (15:08→21:35)
[2023-04-08] MEDS ORDERED: Metoprolol Tartrate 5 MG/5 ML VIAL IVP SCH (17:45)
[2023-04-08] MEDS ORDERED: Carvedilol 25 MG TAB PO SCH (20:00)
[2023-04-09] MEDS: Carvedilol 25 MG TAB PO SCH ×2 (09:27→16:28)
[2023-04-09] MEDS: Sacubitril 24MG/Valsartan 26 MG TAB PO SCH (09:27)
[2023-04-09] MEDS: Aspirin 81 mg Enteric Coated Tablet PO SCH (09:27)
[2023-04-09] MEDS: Senokot S 8.6-50 MG TAB PO SCH ×2 (09:28→20:35)
[2023-04-09] MEDS: HYDROcodone/Acetaminophen 5/325 mg Tablet PO PRN ×2 (09:28→21:41)
[2023-04-09] MEDS ORDERED: Spironolactone 25 MG TAB PO SCH (15:15)
[2023-04-09 16:00] LABS: Bilirubin Negative (Negative); Blood, Urine 3+ (Negative); CAUTI Indications for Culture Acute Hematuria; Clarity Clear (Clear); Glucose, Urine (Dipstick) Normal (Negative); Ketone, Urine Negative (Negative); Leukocyte 25 Leu/uL (Negative); Nitrite Negative (Negative); Protein, Urine (Dipstick) 200 mg/dL (Neg-Trace); RBC/HPF 0-3 HPF (0-3); Specific Gravity, Urine 1.018 (1.002-1.036); Squamous Epithelial None Seen HPF (0-3); WBC/HPF 0-3 HPF (0-3)
[2023-04-09 16:03] LABS: Bacteria/HPF 1+ HPF (None Seen); Urine Culture Reflex No No
[2023-04-09 17:10] LABS: G-6-PD,Quant 319 (127-427); G-6-PD,RBC 3.94 x10E6/uL (4.14-5.80)
[2023-04-09 17:16] LABS: Hemoglobin 8.2 g/dL (14.0-18.0); Mean Corpuscular HGB CONC 29.9 g/dL (32.0-36.0); Mean Corpuscular Hemoglobin 19.3 pg (27.0-31.0); Mean Corpuscular Volume 64.6 fl (78.0-98.0); Platelet Count 175 10x3/uL (130-400); RBC Distribution Width 24.8 % (11.5-14.5); Red Blood Cell (RBC) Count 4.24 mill/uL (4.70-6.10); White Blood Cell (WBC) Count 11.2 10x3/uL (4.8-10.8)
[2023-04-09 17:18] LABS: Delete Auto Diff?? YES; Manual Diff?? YES
[2023-04-09 17:53] LABS: ALT (SGPT) 33 U/L (8-55); AST (SGOT) 60 U/L (5-34); Albumin 2.8 g/dL (3.5-5.0); Alkaline Phosphatase 181 U/L (40-110); Anion Gap 12 mmol/L (10-20); BUN (Urea Nitrogen) 28 mg/dL (8.9-20.6); Bilirubin, Total 4.9 mg/dL (0.2-1.2); Calc. Creatinine Clearance 61 mL/min (70-130); Calcium 8.6 mg/dL (7.8-10.44); Carbon Dioxide 22 mmol/L (22-29); Chloride 99 mmol/L (98-107); Estimated GFR 39; Globulin 5.9 g/dL (2.4-3.5); Glucose 107 mg/dL (70-105); Potassium 4.8 mmol/L (3.5-5.1); Protein, Total 8.7 g/dL (6.0-8.3); Sodium 128 mmol/L (136-145)
[2023-04-09 18:05] LABS: Anisocytosis MODERATE=16-30 cells HPF (0-5); Band 3 % (5-11); Elliptocytes SLIGHT = 2-5 cells HPF (0-1); Eosinophils 2 % (0-10); Hypochromia SLIGHT = 6-15 cells HPF (0-5); Lymphocytes 9 % (21-51); Microcytosis SLIGHT = 6-15 cells HPF (0-5); Monocytes 7 % (0-10); Neutrophil 78 % (42-75); Nucleated RBC (Manual Ct) 11 % (0); Ovalocytes SLIGHT = 2-5 cells HPF (0-1); Platelet Adequacy Comment Platelets Normal; Polychromasia SLIGHT = 2-3 cells HPF (0-2); Target Cells SLIGHT = 2-5 cells HPF (0-1); Tear Drops SLIGHT = 2-5 cells HPF (0-1); Total Cell Count 100
[2023-04-09] MEDS ORDERED: Piperacillin/Tazobactam 4.5 GM in Sodium Chloride 0.9% 100 ML IVPB SCH (18:15)
[2023-04-09] MEDS ORDERED: Piperacillin/Tazobactam 3.375 GM in Sodium Chloride 0.9% 100 ML IVPB SCH ×2 (18:30→23:59)
[2023-04-09] MEDS ORDERED: Sacubitril 49 MG/Valsartan 51 MG TABLET PO SCH (21:00)
[2023-04-10] MEDS: Piperacillin/Tazobactam 3.375 GM in Sodium Chloride 0.9% 100 ML IVPB SCH ×3 (02:35→17:24)
[2023-04-10 05:10] LABS: #Eosinphils 0.2 thou/uL (0.0-0.7); #Neutrophils 3.8 thou/uL (1.40-6.50); %Basophils 0.4 % (0.0-1.0); %Eosinophils 2.1 % (0.0-10.0); %Lymphocytes 28.8 % (21.0-51.0); %Monocytes 13.5 % (0.0-10.0); %Neutrophils 53.5 % (42.0-75.0); Hemoglobin 7.7 g/dL (14.0-18.0); Mean Corpuscular HGB CONC 30.4 g/dL (32.0-36.0); Mean Corpuscular Hemoglobin 19.3 pg (27.0-31.0); Mean Corpuscular Volume 63.4 fl (78.0-98.0); Platelet Count 194 10x3/uL (130-400); RBC Distribution Width 24.6 % (11.5-14.5); Red Blood Cell (RBC) Count 3.99 mill/uL (4.70-6.10); White Blood Cell (WBC) Count 7.1 10x3/uL (4.8-10.8)
[2023-04-10 05:33] LABS: Anion Gap 10 mmol/L (10-20); BUN (Urea Nitrogen) 31 mg/dL (8.9-20.6); Calc. Creatinine Clearance 61 mL/min (70-130); Calcium 8.4 mg/dL (7.8-10.44); Carbon Dioxide 23 mmol/L (22-29); Chloride 103 mmol/L (98-107); Estimated GFR 39; Glucose 97 mg/dL (70-105); Potassium 4.4 mmol/L (3.5-5.1); Sodium 132 mmol/L (136-145)
[2023-04-10 05:56] LABS: Delete Auto Diff?? NO
[2023-04-10] MEDS ORDERED: Spironolactone 25 MG TAB PO SCH (08:00)
[2023-04-10] MEDS: Senokot S 8.6-50 MG TAB PO SCH ×2 (09:00→21:05)
[2023-04-10] MEDS: Aspirin 81 mg Enteric Coated Tablet PO SCH (09:04)
[2023-04-10] MEDS: Carvedilol 25 MG TAB PO SCH ×2 (09:05→17:24)
[2023-04-10 10:09] LABS: ALT (SGPT) 30 U/L (8-55); AST (SGOT) 46 U/L (5-34); Albumin 2.7 g/dL (3.5-5.0); Alkaline Phosphatase 160 U/L (40-110); Bilirubin, Direct 1.4 mg/dL (0.1-0.3); Bilirubin, Total 3.9 mg/dL (0.2-1.2); Protein, Total 8.2 g/dL (6.0-8.3)
[2023-04-10 12:13] LABS: Manual Diff?? YES
[2023-04-10 12:50] LABS: Anisocytosis MODERATE=16-30 cells HPF (0-5); Band 7 % (5-11); Burr Cells SLIGHT = 2-5 cells HPF (0-1); CellaVision Operator ID LAB.KB; Eosinophils 2 % (0-10); Giant Platelets 2.9 % (0-5); Hypochromia SLIGHT = 6-15 cells HPF (0-5); Large Platelets 5.8 % (0-5); Lymphocytes 11 % (21-51); Microcytosis SLIGHT = 6-15 cells HPF (0-5); Monocytes 6 % (0-10); Myelocyte 2 % (0-0); Neutrophil 62 % (42-75); Nucleated RBC (Manual Ct) 9 % (0); Ovalocytes SLIGHT = 2-5 cells HPF (0-1); Platelet Adequacy Comment Platelets Normal; Polychromasia SLIGHT = 2-3 cells HPF (0-2); Reactive Lymphocytes 8 % (0-10); Smudge Cells 34.6 %; Target Cells SLIGHT = 2-5 cells HPF (0-1); Tear Drops SLIGHT = 2-5 cells HPF (0-1); Total Cell Count 104
[2023-04-11] MEDS: Piperacillin/Tazobactam 3.375 GM in Sodium Chloride 0.9% 100 ML IVPB SCH ×2 (02:39→09:02)
[2023-04-11 04:55] LABS: #Eosinphils 0.2 thou/uL (0.0-0.7); #Monocytes 0.9 thou/uL (0.11-0.59); #Neutrophils 2.5 thou/uL (1.40-6.50); %Basophils 0.5 % (0.0-1.0); %Eosinophils 3.7 % (0.0-10.0); %Lymphocytes 41.1 % (21.0-51.0); %Neutrophils 39.3 % (42.0-75.0); Hemoglobin 7.6 g/dL (14.0-18.0); Mean Corpuscular HGB CONC 30.2 g/dL (32.0-36.0); Mean Corpuscular Hemoglobin 19.3 pg (27.0-31.0); Mean Corpuscular Volume 64.1 fl (78.0-98.0); Platelet Count 148 10x3/uL (130-400); RBC Distribution Width 25.2 % (11.5-14.5); Red Blood Cell (RBC) Count 3.93 mill/uL (4.70-6.10); White Blood Cell (WBC) Count 6.3 10x3/uL (4.8-10.8)
[2023-04-11 05:15] LABS: ALT (SGPT) 29 U/L (8-55); AST (SGOT) 32 U/L (5-34); Albumin 2.5 g/dL (3.5-5.0); Alkaline Phosphatase 135 U/L (40-110); Anion Gap 10 mmol/L (10-20); BUN (Urea Nitrogen) 25 mg/dL (8.9-20.6); Bilirubin, Total 2.1 mg/dL (0.2-1.2); Calc. Creatinine Clearance 62 mL/min (70-130); Calcium 7.9 mg/dL (7.8-10.44); Carbon Dioxide 24 mmol/L (22-29); Chloride 106 mmol/L (98-107); Estimated GFR 40; Globulin 5.5 g/dL (2.4-3.5); Glucose 103 mg/dL (70-105); Potassium 4.6 mmol/L (3.5-5.1); Sodium 135 mmol/L (136-145)
[2023-04-11] MEDS: Carvedilol 25 MG TAB PO SCH ×2 (09:02→16:01)
[2023-04-11] MEDS: Senokot S 8.6-50 MG TAB PO SCH ×2 (09:02→20:07)
[2023-04-11] MEDS: Aspirin 81 mg Enteric Coated Tablet PO SCH (09:02)
[2023-04-11] MEDS: hydrALAZINE 25 MG TAB PO SCH ×2 (16:01→20:07)
[2023-04-12 05:04] LABS: #Eosinphils 0.3 thou/uL (0.0-0.7); #Monocytes 0.7 thou/uL (0.11-0.59); %Basophils 0.6 % (0.0-1.0); %Eosinophils 4.6 % (0.0-10.0); %Lymphocytes 45.4 % (21.0-51.0); %Monocytes 12.5 % (0.0-10.0); %Neutrophils 36.2 % (42.0-75.0); Hemoglobin 7.1 g/dL (14.0-18.0); Mean Corpuscular HGB CONC 29.6 g/dL (32.0-36.0); Mean Corpuscular Hemoglobin 19.2 pg (27.0-31.0); Mean Corpuscular Volume 64.9 fl (78.0-98.0); Platelet Count 187 10x3/uL (130-400); White Blood Cell (WBC) Count 5.4 10x3/uL (4.8-10.8)
[2023-04-12 05:22] LABS: ALT (SGPT) 24 U/L (8-55); AST (SGOT) 21 U/L (5-34); Albumin 2.6 g/dL (3.5-5.0); Alkaline Phosphatase 125 U/L (40-110); Anion Gap 8 mmol/L (10-20); BUN (Urea Nitrogen) 17 mg/dL (8.9-20.6); Bilirubin, Total 1.2 mg/dL (0.2-1.2); Calc. Creatinine Clearance 74 mL/min (70-130); Carbon Dioxide 22 mmol/L (22-29); Chloride 106 mmol/L (98-107); Estimated GFR 51; Globulin 5.1 g/dL (2.4-3.5); Glucose 93 mg/dL (70-105); Potassium 3.7 mmol/L (3.5-5.1); Protein, Total 7.7 g/dL (6.0-8.3); Sodium 132 mmol/L (136-145)
[2023-04-12 06:59] LABS: Anisocytosis MODERATE=16-30 cells HPF (0-5); CellaVision Operator ID LAB.JMM; Elliptocytes SLIGHT = 2-5 cells HPF (0-1); Macrocytosis SLIGHT = 6-15 cells HPF (0-5); Platelet Adequacy Comment Platelets Normal; Poikilocytosis SLIGHT = 6-15 cells HPF (0-5); Polychromasia SLIGHT = 2-3 cells HPF (0-2); Target Cells SLIGHT = 2-5 cells HPF (0-1)
[2023-04-12] MEDS: Aspirin 81 mg Enteric Coated Tablet PO SCH (09:43)
[2023-04-12] MEDS: hydrALAZINE 25 MG TAB PO SCH ×2 (09:43→15:40)
[2023-04-12] MEDS: Senokot S 8.6-50 MG TAB PO SCH (09:43)
[2023-04-12] MEDS: Carvedilol 25 MG TAB PO SCH ×2 (09:43→15:40)
[2023-04-12 15:39] VITALS: TEMP 98.3
[2023-04-12 16:50] VITALS: BP 151/100
== END 2023-04-12 17:09 | disposition home or self-care (01) | DRG 444 ==
LOC: ERS 01:54 → ERHOLD 06:45 → 2NO 17:50
PROVIDERS: ADMIT Student in an Organized Health Care Education/Training Program; ATTEND Internal Medicine
PROC: 0FC98ZZ Extirpation of Matter from Common Bile Duct, Via Natural or Artificial Opening Endoscopic (ICD-10-PCS; principal; 2023-03-31)
PROC: 0FC78ZZ Extirpation of Matter from Common Hepatic Duct, Via Natural or Artificial Opening Endoscopic (ICD-10-PCS; 2023-03-31)
PROC: 30233N1 Transfusion of Nonautologous Red Blood Cells into Peripheral Vein, Percutaneous Approach (ICD-10-PCS; 2023-04-01)
DX: K80.43 Calculus of bile duct with acute cholecystitis with obstruction (principal); I21.A1 Myocardial infarction type 2; K85.10 Biliary acute pancreatitis without necrosis or infection; I50.21 Acute systolic (congestive) heart failure; E87.1 Hypo-osmolality and hyponatremia; I42.9 Cardiomyopathy, unspecified; I13.0 Hypertensive heart and chronic kidney disease with heart failure and stage 1 through stage 4 chronic kidney disease, or unspecified chronic kidney disease; N17.9 Acute kidney failure, unspecified; I48.91 Unspecified atrial fibrillation; Z21 Asymptomatic human immunodeficiency virus [HIV] infection status; E88.09 Other disorders of plasma-protein metabolism, not elsewhere classified; F17.210 Nicotine dependence, cigarettes, uncomplicated; D63.1 Anemia in chronic kidney disease; K64.9 Unspecified hemorrhoids; E87.6 Hypokalemia; R74.01 Elevation of levels of liver transaminase levels; N18.2 Chronic kidney disease, stage 2 (mild); Z79.899 Other long term (current) drug therapy; Z98.890 Other specified postprocedural states; Z91.148 Patient's other noncompliance with medication regimen for other reason; Z91.041 Radiographic dye allergy status
CPT/HCPCS: 36415; 36416; 36430; 74177; 74181; 74330; 76700; 76705; 78452; 80048; 80053; 80076; 81001; 82607; 82728; 82955; 83540; 83550; 83690; 84484; 85025; 85041; 85610; 85730; 86361; 86850; 86900; 86901; 87040; 87536; 93005; 93010; 93017; 93306; 96361; 96365; 96375; 96376; A9500; C9113; J0153; J1200; J2250; J2270; J2272; J2405; J2543; J2704; J2920; J3010; J3490; J7050; P9016; Q9966; Q9967; S0028

== ENCOUNTER 2025-07-15 18:45 | Emergency (ER) | payer BC, SELFPAY ==
[2025-07-15] MEDS ORDERED: Ketorolac Tromethamine 30 MG (1 mL) VIAL ONE (20:28)
[2025-07-15] MEDS ORDERED: VANCOMYCIN 2 GRAM/400 ML BAG ONE (21:08)
== END 2025-07-15 23:17 | disposition home or self-care (01) ==
LOC: ERS 18:45
DX: K13.0 Diseases of lips (principal); I10 Essential (primary) hypertension; F17.210 Nicotine dependence, cigarettes, uncomplicated; Z21 Asymptomatic human immunodeficiency virus [HIV] infection status
CPT/HCPCS: 96365; 96366; 96368; 96375; J1885; J2543; J3375